=== PATIENT | male | born 1945 | race Hispanic/Latino ===

== ENCOUNTER 2016-09-05 07:23 | Inpatient (IN) | payer MEDICARE ==
[2016-09-05 07:24] VITALS: PULSE 108
[2016-09-05] MEDS ORDERED: Albuterol-Ipratrop 3 mg / 0.5 (3 ml) UD ONE (07:24)
[2016-09-05] MEDS ORDERED: Albuterol-Ipratrop 3 mg / 0.5 (3 ml) UD INH STA ×2 (07:39→07:49)
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
[2016-09-05 07:59] LABS: ABG ALLEN TEST YES; ARTERIAL BLOOD GAS HCO3 23.8 mmol/L (21-28); ARTERIAL BLOOD GAS MODE MASK; ARTERIAL BLOOD GAS PH 7.28 (7.35-7.45); ARTERIAL BLOOD GAS PO2 71 mm/Hg (80-100)
[2016-09-05 08:26] LABS: BASO # 0.1 K/uL (0.0-0.2); BASO % 0.8 % (0.0-2.0); EOS # 0.2 K/uL (0.0-0.7); EOS % 2.5 % (0.0-4.0); HEMATOCRIT 39.7 % (35.0-51.0); LYMPH % 26.5 % (20.0-40.0); MEAN CELL VOLUME 93.5 fl (80.0-94.0); MEAN CORPUSCULAR HEMOGLOBIN 29.9 pg (27.0-31.0); MEAN CORPUSCULAR HGB CONC 31.9 g/dL (33.0-37.0); MEAN PLATELET VOLUME 9.3 fl (7.2-11.7); MONO # 0.8 K/uL (0.0-0.8); NEUT # 4.5 K/uL (1.8-7.0); NEUT % 60.2 % (50.0-75.0); NRBC % 0.2 % (0.0-0.0); WHITE BLOOD COUNT 7.5 K/uL (4.8-10.8)
[2016-09-05 08:38] LABS: BLOOD UREA NITROGEN 24 mg/dl (9-20); CALCIUM 8.5 mg/dL (8.4-10.2); CARBON DIOXIDE 26 mmol/L (22-30); CHLORIDE 104 mmol/L (98-107); GFR AFRICAN-AMERICAN > 60; GLUCOSE,RANDOM 240 mg/dL (75-110); POTASSIUM 4.3 MMOL/L (3.6-5.0); SODIUM 142 mmol/l (132-148)
--- NOTE | 2016-09-05 09:19 | RAD ---
PROCEDURE: CHEST RADIOGRAPH, 1 VIEW HISTORY: c/o chest pain COMPARISON: 12/12/2015 FINDINGS: LUNGS: Multifocal hazy opacities throughout both lungs. PLEURA: No pneumothorax or pleural fluid seen. CARDIOVASCULAR: Enlarged cardiomediastinal silhouette. OSSEOUS STRUCTURES: The osseous structures demonstrate degenerative changes. VISUALIZED UPPER ABDOMEN: Upper abdomen is suboptimally evaluated. OTHER FINDINGS: Left-sided AICD. Dental hardware. IMPRESSION: Multifocal hazy opacities throughout both lungs particularly in the middle and lower lung perales. Underlying edema, hemorrhage or multifocal infection should be considered.
[2016-09-05 09:45] LABS: PARTIAL THROMBOPLASTIN TIME 27.1 Seconds (25.6-37.1)
[2016-09-05 10:18] LABS: RBC URINE 2 /hpf (0-3); URINE BILIRUBIN NEGATIVE (NEGATIVE); URINE BLOOD NEGATIVE (NEGATIVE); URINE COLOR STRAW (YELLOW); URINE GLUCOSE (UA) NEG (Normal); URINE KETONE NEGATIVE (NEGATIVE); URINE LEUKOCYTE ESTERASE NEG Leu/uL (Negative); URINE PROTEIN 100 mg/dL (NEGATIVE); URINE UROBILINOGEN 0.2-1.0 mg/dL (0.2-1.0); WBC URINE 2 /hpf (0-5)
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
[2016-09-05] MEDS ORDERED: Digoxin 500 mcg/2ml (0.5 mg/2ml) Inj IVP STA (10:43)
[2016-09-05] MEDS ORDERED: Digoxin 500 mcg/2ml (0.5 mg/2ml) Inj ONE (11:01)
[2016-09-05] MEDS: Potassium Chloride 20 mEq ER Tab PO SCH (18:04)
[2016-09-05] MEDS: Enoxaparin 40 mg Syringe SC SCH (21:02)
[2016-09-06 08:27] LABS: HEMATOCRIT 34.2 % (35.0-51.0); MEAN CELL VOLUME 91.7 fl (80.0-94.0); MEAN CORPUSCULAR HEMOGLOBIN 29.4 pg (27.0-31.0); MEAN CORPUSCULAR HGB CONC 32.1 g/dL (33.0-37.0); RED CELL DISTRIBUTION WIDTH 14.6 % (11.5-14.5); WHITE BLOOD COUNT 11.1 K/uL (4.8-10.8)
--- NOTE | 2016-09-06 08:27 | CP.PCM.PN ---
Subjective - Date & Time of Evaluation Date of Evaluation: 09/06/16 Time of Evaluation: 07:30 - Subjective Subjective: The pt is feeling much better still with mild SOB His Troponins are positive x 3 Because of this I told the patient that I was going to request a consult with Dr Abby Bradford who saw him when he was at [facility] The patient refuses --says he wants to go home does not want Cath done. Continue present Tx Objective - Vital Signs/Intake and Output Vital Signs (last 24 hours): Temp Pulse Resp BP Pulse Ox 97.6 F 98 H 18 121/72 98 09/06/16 07:59 09/06/16 07:59 09/06/16 07:59 09/06/16 07:59 09/06/16 07:59 - Medications Medications: Current Medications Enalapril Maleate (Vasotec) 5 mg PO DAILY [facility] Last Admin: 09/05/16 18:52 Dose: 5 mg Enoxaparin Sodium (Lovenox) 40 mg SC DAILY [facility] PRN Reason: Protocol Last Admin: 09/05/16 21:02 Dose: 40 mg Furosemide (Lasix) 40 mg IVP DAILY [facility] Potassium Chloride (K-Dur 20 Meq Er Tab) 20 meq PO DAILY [facility] Stop: 09/07/16 09:00 Last Admin: 09/05/16 18:04 Dose: 20 meq - Labs Labs: PT 10.9 Seconds (9.8-13.1) 09/05/16 07:35 INR 1.0 (0.9-1.2) 09/05/16 07:35 APTT 27.1 Seconds (25.6-37.1) 09/05/16 07:35 - Constitutional Appears: No Acute Distress - Head Exam Head Exam: NORMAL INSPECTION - Eye Exam Eye Exam: Normal appearance Pupil Exam: NORMAL ACCOMODATION - ENT Exam ENT Exam: Normal Exam - Neck Exam Neck Exam: Normal Inspection - Respiratory Exam Respiratory Exam: Decreased Breath Sounds - Cardiovascular Exam Cardiovascular Exam: REGULAR RHYTHM - GI/Abdominal Exam GI & Abdominal Exam: Normal Bowel Sounds Assessment and Plan (1) COPD exacerbation Status: Acute (2) Chronic systolic dysfunction of left ventricle Status: Acute (3) Pneumonia Status: Acute (4) Elevated troponin Assessment & Plan: As noted above recommended to pt that I would like Dr. Abby Bradford to evaluate him for possible cath He does not want this Status: Acute
[2016-09-06 08:40] LABS: ALB/GLOB RATIO 1.1 (1.0-2.1); ALKALINE PHOSPHATASE 62 U/L (38-126); ALT/SGPT 37 U/L (21-72); AST/SGOT 32 U/L (17-59); BILIRUBIN,TOTAL 0.4 mg/dl (0.2-1.3); BLOOD UREA NITROGEN 26 mg/dl (9-20); CALCIUM 8.5 mg/dL (8.4-10.2); CARBON DIOXIDE 31 mmol/L (22-30); CHLORIDE 103 mmol/L (98-107); GFR AFRICAN-AMERICAN > 60; GLUCOSE,RANDOM 114 mg/dL (75-110); SODIUM 139 mmol/l (132-148)
[2016-09-06] MEDS: Potassium Chloride 20 mEq ER Tab PO SCH (08:40)
[2016-09-06] MEDS: Enoxaparin 40 mg Syringe SC SCH (08:41)
[2016-09-06 08:44] LABS: POTASSIUM 5.4 MMOL/L (3.6-5.0)
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
--- NOTE | 2016-09-06 11:30 | CP.PCM.PN ---
Subjective - Date & Time of Evaluation Date of Evaluation: 09/06/16 Time of Evaluation: 10:30 - Subjective Subjective: patient is not SOB Denies chest pain Noted to have three positive enzymes. Desires to go home and AMA. Objective - Vital Signs/Intake and Output Vital Signs (last 24 hours): Temp Pulse Resp BP Pulse Ox 97.6 F 98 H 18 121/72 98 09/06/16 07:59 09/06/16 09:00 09/06/16 07:59 09/06/16 08:40 09/06/16 07:59 - Medications Medications: Current Medications Enalapril Maleate (Vasotec) 5 mg PO DAILY [facility] Last Admin: 09/06/16 08:41 Dose: 5 mg Enoxaparin Sodium (Lovenox) 40 mg SC DAILY [facility] PRN Reason: Protocol Last Admin: 09/06/16 08:41 Dose: 40 mg Furosemide (Lasix) 40 mg IVP BID [facility] Potassium Chloride (K-Dur 20 Meq Er Tab) 20 meq PO DAILY [facility] Stop: 09/07/16 09:00 Last Admin: 09/06/16 08:40 Dose: 20 meq - Labs Labs: 09/06/16 06:30 09/06/16 06:30 PT 10.9 Seconds (9.8-13.1) 09/05/16 07:35 INR 1.0 (0.9-1.2) 09/05/16 07:35 APTT 27.1 Seconds (25.6-37.1) 09/05/16 07:35 - Head Exam Head Exam: NORMAL INSPECTION - Eye Exam Eye Exam: Normal appearance - ENT Exam ENT Exam: Mucous Membranes Moist - Respiratory Exam Respiratory Exam: Decreased Breath Sounds - Cardiovascular Exam Cardiovascular Exam: Irregular Rhythm - Neurological Exam Neurological Exam: Awake - Psychiatric Exam Psychiatric exam: Anxious Assessment and Plan (1) Acute coronary syndrome Status: Acute (2) Acute pulmonary edema Status: Acute (3) COPD (chronic obstructive pulmonary disease) Status: Acute (4) CHF exacerbation Status: Acute (5) HTN (hypertension) Status: Acute - Assessment and Plan (Free Text) Plan: Cont meds cont tx cont diuresis check labs in am Discussed with Dr Sanchez mejia possible cath.
--- NOTE | 2016-09-06 14:23 | CP.PCM.CON ---
History of Present Illness - History of Present Illness History of Present Illness: I was asked to see patient by DR Sanabria and Dr Sigala, Patient is a 71 year old male with PMH CABG, ischemic cardiomyopathy s/p AICD, afib with previous supratherapeutic INR known to me from multiple admissions from [facility]. He underwent nuclear stress test revealing severe LV dysfunction with infarction of the inferolateral wall of the left ventricle. Patient has been poorly compliant with medical therapy. He developed dyspnea while driving and presented to [facility]. He deneis chest pain. pro BNP was markedly elevated. There is mild troponin elevation. Review of Systems - Constitutional Constitutional: absent: As Per HPI, Anorexia, Chills, Daytime Sleepiness, Excessive Sweating, Fatigue, Fever, Frequent Falls, Headache, Increased Appetite , Lethargy, Malaise, Night Sweats, Snoring, Sleep Apnea, Weight Gain, Weight Loss, Weakness, Other - EENT Eyes: absent: As Per HPI, Blind Spots, Blurred Vision, Change in Vision, Decreased Night Vision, Diplopia, Discharge, Dry Eye, Exophthalmos, Floaters, Irritation, Itchy Eyes, Loss of Peripheral Vision, Pain, Photophobia, Requires Corrective Lenses, Sees Flashes, Spots in Vision, Tunnel Vision, Other Visual Disturbances, Loss of Vision, Other Ears: absent: As Per HPI, Decreased Hearing, Ear Discharge, Ear Pain, Tinnitus, Abnormal Hearing, Disequilibrium, Dizziness, Other Nose/Mouth/Throat: absent: As Per HPI, Epistaxis, Nasal Congestion, Nasal Discharge, Nasal Obstruction, Nasal Trauma, Nose Pain, Post Nasal Drip, Sinus Pain, Sinus Pressure, Bleeding Gums, Change in Voice, Dental Pain, Dry Mouth, Dysphagia, Halitosis, Hoarsness, Lip Swelling, Mouth Lesions, Mouth Pain, Odynophagia, Sore Throat, Throat Swelling, Tongue Swelling, Facial Pain, Neck Pain, Neck Mass, Other - Cardiovascular Cardiovascular: Dyspnea - Respiratory Respiratory: Dyspnea - Gastrointestinal Gastrointestinal: absent: As Per HPI, Abdominal Pain, Belching, Bloating, Change in Bowel Habits, Change in Stool Character, Coffee Ground Emesis, Constipation, Cramping, Diarrhea, Dyspepsia, Dysphagia, Early Satiety, Excessive Flatus, Fecal Incontinence, Heartburn, Hematemesis, Hematochezia, Loose Stools, Melena, Nausea, Odynophagia, Temesmus, Vomiting, Other - Genitourinary Genitourinary: absent: As Per HPI, Change in Urinary Stream, Difficulty Urinating, Dysuria, Flank Pain, Hematuria, Pyuria, Nocturia, Urinary Incontinence, Urinary Frequency, Urinary Hesitance, Urinary Urgency, Voiding Freq/Small Amts, Freq UTI, Hx Renal/Bladder Calculi, Hx /Renal Surgery, Bladder Distension, Other - Musculoskeletal Musculoskeletal: absent: As Per HPI, Abnormal Gait, Arthralgias, Atrophy, Back Pain, Deformity, Joint Swelling, Limited Range of Motion, Loss of Height, Muscle Cramps, Muscle Weakness, Myalgias, Neck Pain, Numbness, Radiating Pain into Limb, Stiffness, Tingling, Other - Integumentary Integumentary: absent: As Per HPI, Acne, Alopecia, Bleeding Lesions, Change in Hair, Change in Nails, Change in Pigmentation, Changing Lesions, Dry Skin, Erythema, Furuncle, Hirsutism, Lesions, New Lesions, Non-Healing Lesions, Photosensitivity, Pruritus, Rash, Skin Pain, Skin Ulcer, Sores, Striae, Swelling , Unusual Bruising, Wounds, Jaundice, Other - Neurological Neurological: absent: As Per HPI, Abnormal Gait, Abnormal Hearing, Abnormal Movements, Abnormal Speech, Behavioral Changes, Burning Sensations, Confusion, Convulsions, Disequilibrium, Dizziness, Numbness, Focal Weakness, Frequent Falls , Headaches, Lack of Coordination, Loss of Vision, Memory Loss, Paresthesias, Radicular Pain, Restless Legs, Sensory Deficit, Syncope, Tingling, Tremor, Vertigo, Weakness, Other Visual Disturbances, Other - Psychiatric Psychiatric: absent: As Per HPI, Abnormal Sleep Pattern, Anhedonia, Anxiety, Auditory Hallucinations, Behavioral Changes, Change in Appetite, Change in Libido, Confusion, Depression, Difficulty Concentrating, Hallucinations, Homicidal Ideation, Hopelessness, Irritability, Memory Loss, Mood Swings, Panic Attacks, Paranoia, Suicidal Ideation, Visual Hallucinations, Tactile Hallucinations, Other - Endocrine Endocrine: absent: As Per HPI, Change in Body Appearance, Change in Libido, Cold Intolorance, Deepening of Voice, Excessive Sweating, Fatigue, Flushing, Heat Intolorance, Increase in Ring/Shoe/Hat Size, Palpitations, Polydipsia, Polyphagia, Polyuria, Other - Hematologic/Lymphatic Hematologic: absent: As Per HPI, Easy Bleeding, Easy Bruising, Lymphadenopathy, Other Past Patient History - Infectious Disease Hx of Infectious Diseases: None - Past Medical History & Family History Past Medical History?: No - Past Social History Smoking Status: Former Smoker - CARDIAC Hx Atrial Fibrillation: Yes Hx Congestive Heart Failure: Yes Hx Hypertension: Yes Hx Pacemaker: Yes - PULMONARY Hx Chronic Obstructive Pulmonary Disease (COPD): Yes (Emphysema) Hx Emphysema: Yes - NEUROLOGICAL Hx Neurological Disorder: No - HEENT Other/Comment: wears eyeglasses - RENAL Hx Chronic Kidney Disease: No - ENDOCRINE/METABOLIC Hx Endocrine Disorders: No - HEMATOLOGICAL/ONCOLOGICAL Hx Human Immunodeficiency Virus (HIV): No - INTEGUMENTARY Hx Dermatological Problems: No - MUSCULOSKELETAL/RHEUMATOLOGICAL Hx Musculoskeletal Disorders: No Hx Falls: No - GASTROINTESTINAL Hx Gastrointestinal Disorders: No - GENITOURINARY/GYNECOLOGICAL Hx Genitourinary Disorders: No - PSYCHIATRIC Hx Psychophysiologic Disorder: No Hx Substance Use: No - SURGICAL HISTORY Hx Surgeries: Yes Other/Comment: Surgeries: Hernia repair and Pacemaker insertion - ANESTHESIA Hx Anesthesia: Yes Hx Anesthesia Reactions: No Hx Malignant Hyperthermia: No Meds Allergies/Adverse Reactions: Allergies Allergy/AdvReac Type Severity Reaction Status Date / Time No Known Allergies Allergy Verified 08/14/16 16:31 - Medications Medications: Current Medications Enalapril Maleate (Vasotec) 5 mg PO DAILY [facility] Last Admin: 09/06/16 08:41 Dose: 5 mg Enoxaparin Sodium (Lovenox) 40 mg SC DAILY [facility] PRN Reason: Protocol Last Admin: 09/06/16 08:41 Dose: 40 mg Furosemide (Lasix) 40 mg IVP BID [facility] Potassium Chloride (K-Dur 20 Meq Er Tab) 20 meq PO DAILY [facility] Stop: 09/07/16 09:00 Last Admin: 09/06/16 08:40 Dose: 20 meq Physical Exam - Constitutional Appears: Non-toxic - Head Exam Head Exam: NORMAL INSPECTION - Eye Exam Eye Exam: Normal appearance - ENT Exam ENT Exam: Mucous Membranes Moist - Neck Exam Neck exam: Positive for: Full Rom - Respiratory Exam Respiratory Exam: Decreased Breath Sounds - Cardiovascular Exam Cardiovascular Exam: REGULAR RHYTHM - GI/Abdominal Exam GI & Abdominal Exam: Normal Bowel Sounds - Rectal Exam Rectal Exam: Deferred - Extremities Exam Extremities exam: Positive for: pedal edema - Back Exam Back exam: NORMAL INSPECTION - Neurological Exam Neurological exam: Alert, Oriented x3 - Psychiatric Exam Psychiatric exam: Normal Affect - Skin Skin Exam: Normal Color Results - Vital Signs Recent Vital Signs: Last Vital Signs Temp 97.7 F 09/06/16 12:21 Pulse 85 09/06/16 12:21 Resp 18 09/06/16 12:21 BP 99/59 L 09/06/16 12:21 Pulse Ox 98 09/06/16 12:21 - Labs Result Diagrams: 09/06/16 06:30 09/06/16 06:30 Labs: Laboratory Results - last 24 hr 09/05/16 09/05/16 09/06/16 14:49 22:39 06:30 WBC 11.1 H RBC 3.73 L Hgb 11.0 L Hct 34.2 L MCV 91.7 MCH 29.4 MCHC 32.1 L RDW 14.6 H Plt Count 212 Sodium Potassium Chloride Carbon Dioxide Anion Gap BUN Creatinine Est GFR ( Amer) Est GFR (Non-Af Amer) Random Glucose Calcium Total Bilirubin AST ALT Alkaline Phosphatase Troponin I 0.6090 H* 0.5540 H* NT-Pro-B Natriuret Pep Total Protein Albumin Globulin Albumin/Globulin Ratio 09/06/16 06:30 WBC RBC Hgb Hct MCV MCH MCHC RDW Plt Count Sodium 139 Potassium 5.4 H Chloride 103 Carbon Dioxide 31 H Anion Gap 10 BUN 26 H Creatinine 0.8 Est GFR ( Amer) > 60 Est GFR (Non-Af Amer) > 60 Random Glucose 114 H Calcium 8.5 Total Bilirubin 0.4 AST 32 ALT 37 Alkaline Phosphatase 62 Troponin I NT-Pro-B Natriuret Pep 6670 H Total Protein 6.0 L Albumin 3.1 L Globulin 2.8 Albumin/Globulin Ratio 1.1 - EKG Data EKG Interpreted by: Myself Assessment & Plan (1) Systolic dysfunction with acute on chronic heart failure Assessment and Plan: patient wuld likely benefit from increased diuretic therapy. Status: Acute (2) Elevated troponin Assessment and Plan: patient has severe LV dysfunction with a large area of infarction on recent stress test. The troponin elevation in the settin og acute on chronic systolic dysfunction may more likely due to acute CHF. Given previous nuclear imaging would recommend medical therapy. would not plan for cardiac cath at this time. Status: Acute (3) CAD (coronary artery disease) Assessment and Plan: antipaltelet therapy Status: Acute (4) Chronic atrial fibrillation Assessment and Plan: previously poorly compliant with Coumadin Status: Acute (5) HTN (hypertension) Assessment and Plan: mgmt per primary team Status: Acute
--- NOTE | 2016-09-06 14:28 | CARD ---
APPROVED REPORT EXAM: Two-dimensional and M-mode echocardiogram with Doppler and color Doppler. Other Information Quality : GoodRhythm : INDICATION Congestive Heart Failure 2D DIMENSIONS IVSd1.52 (0.7-1.1cm)LVDd6.03 (3.9-5.9cm) PWd1.30 (0.7-1.1cm)IVSs1.65 (0.8-1.2cm) LVDs5.29 (2.5-4.0cm)FS (%) 12.2 % PWs1.81 (0.8-1.2cm) M-Mode DIMENSIONS Left Atrium (MM)4.93 (2.5-4.0cm)Aortic Root3.69 (2.2-3.7cm) Aortic Cusp Exc.2.22 (1.5-2.0cm) Aortic Valve AoV Peak Unuhomej237.2cm/sAoV VTI30.8cmAO Peak GR.19mmHg LVOT Peak Doqdxfvb289.2cm/Sukhdeep Mean GR.9mmHg Mitral Valve MV E Idzebsas71.3cm/sMV DECEL [id number] A Ccchojnp12.9cm/s MV SOM09pqA/A ratio2.2MVA (PHT)4.63cm2 TDI Lateral E' Peak V6.36cm/sMedial E' Peak V7.17cm/sE/Lateral E'12.2 E/Medial E'10.8 Pulmonary Valve PV Peak Aanvwdaf514.4cm/s Tricuspid Valve TR Peak Ncqxhgaw325ng/sRAP OYDRQKYL36qxNxXN Peak Gr.34mmHg TPZK31pzCz LEFT VENTRICLE The Left Ventricle is moderately dilated. There is normal left ventricular wall thickness. Left ventricle systolic function is severely impaired. The Ejection Fraction is 10-15%. Generalised hypokinesia. Could not be assesed due to rhythm. RIGHT VENTRICLE The right ventricle is normal size. There is normal right ventricular wall thickness. The right ventricular systolic function is normal. ATRIA The left atrium is moderately dilated. The right atrium size is normal. Pacing leads were seen in RA. AORTIC VALVE The aortic valve is normal in structure and function. No aortic regurgitation is present. There is no aortic valvular stenosis. MITRAL VALVE The mitral valve is normal in structure. There is no evidence of mitral valve prolapse. There is no mitral valve stenosis. Mitral regurgitation is mild. TRICUSPID VALVE The tricuspid valve is normal in structure. There is mild tricuspid regurgitation. Right ventricular systolic pressure is estimated at 51 mmHg. There is moderate pulmonary hypertension. PULMONIC VALVE The pulmonary valve is normal in structure and function. There is mild pulmonic valvular regurgitation. GREAT VESSELS The aortic root is normal in size. The IVC is normal in size and collapses >50% with inspiration. PERICARDIAL EFFUSION The pericardium appears normal. <Conclusion> The Left Ventricle is moderately dilated. There is normal left ventricular wall thickness. Generalised hypokinesia. Left ventricle systolic function is severely impaired. The Ejection Fraction is 10-15%. The left atrium is moderately dilated. There is mild tricuspid regurgitation. There is moderate pulmonary hypertension.
--- NOTE | 2016-09-06 14:46 | CARD ---
APPROVED REPORT EKG Measurement Heart [id number] <Conclusion> Sinus tachycardia with premature ventricular complexes or fusion complexes Left bundle branch block Abnormal ECG
--- NOTE | 2016-09-06 14:47 | CARD ---
APPROVED REPORT EKG Measurement Heart [id number] <Conclusion> Undetermined rhythm Left bundle branch block Abnormal ECG
--- NOTE | 2016-09-06 14:47 | CARD ---
APPROVED REPORT EKG Measurement Heart [id number] <Conclusion> Wide QRS tachycardia with frequent atrial-paced complexes Left bundle branch block Abnormal ECG
[2016-09-06 15:05] VITALS: BMI 23.7
[2016-09-06] MEDS ORDERED: Potassium Chloride 20 mEq ER Tab PO SCH (17:00)
--- NOTE | 2016-09-07 05:56 | CARD ---
APPROVED REPORT EKG Measurement Heart [id number] <Conclusion> Atrial-sensed ventricular-paced rhythm in a pattern of bigeminy Abnormal ECG
[2016-09-07 06:50] LABS: HEMATOCRIT 35.3 % (35.0-51.0); MEAN CELL VOLUME 91.3 fl (80.0-94.0); MEAN CORPUSCULAR HEMOGLOBIN 29.6 pg (27.0-31.0); MEAN CORPUSCULAR HGB CONC 32.4 g/dL (33.0-37.0); RED CELL DISTRIBUTION WIDTH 14.6 % (11.5-14.5); WHITE BLOOD COUNT 10.8 K/uL (4.8-10.8)
[2016-09-07 07:05] LABS: ALB/GLOB RATIO 1.1 (1.0-2.1); ALKALINE PHOSPHATASE 65 U/L (38-126); ALT/SGPT 39 U/L (21-72); AST/SGOT 31 U/L (17-59); BILIRUBIN,TOTAL 0.5 mg/dl (0.2-1.3); BLOOD UREA NITROGEN 39 mg/dl (9-20); CALCIUM 8.8 mg/dL (8.4-10.2); CARBON DIOXIDE 36 mmol/L (22-30); CHLORIDE 98 mmol/L (98-107); GFR AFRICAN-AMERICAN > 60; GLUCOSE,RANDOM 75 mg/dL (75-110); POTASSIUM 4.3 MMOL/L (3.6-5.0); SODIUM 138 mmol/l (132-148); TOTAL PROTEIN 6.2 G/DL (6.3-8.2)
[2016-09-07] MEDS: Enoxaparin 40 mg Syringe SC SCH (09:33)
[2016-09-07] MEDS: Potassium Chloride 20 mEq ER Tab PO SCH (09:35)
--- NOTE | 2016-09-07 10:38 | IP.NPCORE ---
Heart Failure Core Measure - Heart Failure Ejection Fraction: Less Than 40 % (echo 10-15%) KRISTIAN Inhibitor Prescribed: Yes Beta-Sarahi Prescribed: Carvedilol AnticoagulationTherapy for Atrial Fibrillation/Atrialflutter: No Contraindication/Reason for not providing: n/a non compliance - rate control AF Aldosterone Antagonist Prescribed: No Contraindication/Reason for not providing: na - Follow up Will be discharged to: Home
--- NOTE | 2016-09-07 12:30 | CP.PCM.PN ---
Subjective - Date & Time of Evaluation Date of Evaluation: 09/07/16 Time of Evaluation: 12:28 - Subjective Subjective: patient is very upset that he has to wait for a Tare Worker. I had a discussion with Dr Bradford yesterday and made aware that patient is very noncompliant He denies any chest pain or SOB today Desires to go home. Has no fever. Objective - Vital Signs/Intake and Output Vital Signs (last 24 hours): Temp Pulse Resp BP Pulse Ox 97.5 F L 51 L 18 143/61 99 09/07/16 12:22 09/07/16 12:22 09/07/16 12:22 09/07/16 12:22 09/07/16 12:22 Intake and Output: 09/07/16 09/07/16 06:59 18:59 Intake Total 28 Balance 28 - Medications Medications: Current Medications Carvedilol (Coreg) 3.125 mg PO Q12 [facility] Last Admin: 09/07/16 11:18 Dose: 3.125 mg Enalapril Maleate (Vasotec) 5 mg PO DAILY [facility] Last Admin: 09/07/16 09:33 Dose: 5 mg Enoxaparin Sodium (Lovenox) 40 mg SC DAILY [facility] PRN Reason: Protocol Last Admin: 09/07/16 09:33 Dose: 40 mg Furosemide (Lasix) 40 mg IVP BID [facility] Last Admin: 09/07/16 09:33 Dose: 40 mg - Labs Labs: 09/07/16 05:30 09/07/16 05:30 PT 10.9 Seconds (9.8-13.1) 09/05/16 07:35 INR 1.0 (0.9-1.2) 09/05/16 07:35 APTT 27.1 Seconds (25.6-37.1) 09/05/16 07:35 - Head Exam Head Exam: NORMAL INSPECTION - Eye Exam Eye Exam: Normal appearance - ENT Exam ENT Exam: Mucous Membranes Moist - Respiratory Exam Respiratory Exam: Decreased Breath Sounds - Cardiovascular Exam Cardiovascular Exam: REGULAR RHYTHM - GI/Abdominal Exam GI & Abdominal Exam: Normal Bowel Sounds - Neurological Exam Neurological Exam: Awake, CN II-XII Intact, Oriented x3 - Psychiatric Exam Psychiatric exam: Normal Mood Assessment and Plan (1) Acute coronary syndrome Status: Acute (2) Acute pulmonary edema Status: Acute (3) Elevated troponin Status: Acute (4) CAD (coronary artery disease) Status: Acute (5) CHF exacerbation Status: Acute (6) COPD exacerbation Status: Acute (7) Chronic atrial fibrillation Status: Acute - Assessment and Plan (Free Text) Plan: cont meds Cont Lasix fluid restriction patient had a stress test done by Dr Coronado recently.
[2016-09-08 06:45] LABS: HEMATOCRIT 37.2 % (35.0-51.0); MEAN CELL VOLUME 90.7 fl (80.0-94.0); MEAN CORPUSCULAR HEMOGLOBIN 29.4 pg (27.0-31.0); MEAN CORPUSCULAR HGB CONC 32.4 g/dL (33.0-37.0); WHITE BLOOD COUNT 7.9 K/uL (4.8-10.8)
[2016-09-08 06:59] LABS: BLOOD UREA NITROGEN 34 mg/dl (9-20); CALCIUM 8.7 mg/dL (8.4-10.2); CARBON DIOXIDE 36 mmol/L (22-30); CHLORIDE 99 mmol/L (98-107); GFR AFRICAN-AMERICAN > 60; GLUCOSE,RANDOM 95 mg/dL (75-110); MAGNESIUM 2.2 MG/DL (1.6-2.3); PHOSPHOROUS 4.1 mg/dl (2.5-4.5); POTASSIUM 4.1 MMOL/L (3.6-5.0); SODIUM 141 mmol/l (132-148)
[2016-09-08] MEDS: Enoxaparin 40 mg Syringe SC SCH (08:37)
--- NOTE | 2016-09-08 09:33 | CARD ---
APPROVED REPORT EKG Measurement Heart [id number] <Conclusion> Wide QRS tachycardia with occasional premature ventricular complexes Left bundle branch block Abnormal ECG
--- NOTE | 2016-09-08 15:40 | CP.PCM.PN ---
<Brad Echeverria - Last Filed: 09/08/16 15:37> Subjective - Date & Time of Evaluation Date of Evaluation: 09/08/16 Time of Evaluation: 11:37 - Subjective Subjective: Patient seen and examined at bedside with attending. No acute events overnight. Comfortable. No pain, sob, chest pain, abdominal pain. Objective - Vital Signs/Intake and Output Vital Signs (last 24 hours): Temp Pulse Resp BP Pulse Ox 97.5 F L 74 18 109/63 99 09/08/16 12:04 09/08/16 12:04 09/08/16 12:04 09/08/16 12:04 09/08/16 12:04 Intake and Output: 09/08/16 09/08/16 06:59 18:59 Intake Total 360 Balance 360 - Medications Medications: Current Medications Aspirin (Ecotrin) 81 mg PO DAILY [facility] Last Admin: 09/08/16 10:55 Dose: 81 mg Carvedilol (Coreg) 3.125 mg PO Q12 [facility] Last Admin: 09/08/16 08:36 Dose: 3.125 mg Enalapril Maleate (Vasotec) 5 mg PO DAILY [facility] Last Admin: 09/08/16 08:37 Dose: 5 mg Enoxaparin Sodium (Lovenox) 40 mg SC DAILY [facility] PRN Reason: Protocol Last Admin: 09/08/16 08:37 Dose: 40 mg Furosemide (Lasix) 40 mg IVP BID [facility] Last Admin: 09/08/16 08:36 Dose: 40 mg - Labs Labs: 09/08/16 05:20 09/08/16 05:20 PT 10.9 Seconds (9.8-13.1) 09/05/16 07:35 INR 1.0 (0.9-1.2) 09/05/16 07:35 APTT 27.1 Seconds (25.6-37.1) 09/05/16 07:35 - Constitutional Appears: Non-toxic, No Acute Distress - Head Exam Head Exam: NORMAL INSPECTION - Eye Exam Eye Exam: Normal appearance - Respiratory Exam Respiratory Exam: Decreased Breath Sounds, NORMAL BREATHING PATTERN - Cardiovascular Exam Cardiovascular Exam: REGULAR RHYTHM, +S1, +S2. absent: Murmur - GI/Abdominal Exam GI & Abdominal Exam: Soft, Normal Bowel Sounds. absent: Tenderness - Neurological Exam Neurological Exam: Alert, Awake - Psychiatric Exam Psychiatric exam: Normal Affect, Normal Mood - Skin Skin Exam: Dry, Intact, Normal Color, Warm Assessment and Plan (1) CHF exacerbation Assessment & Plan: Improving elevated pro-bnp Cardiology consulted, appreciate recommendations continue diuresis and fluid restriction continue to monitor in telemetry Status: Acute (2) HTN (hypertension) Assessment & Plan: Controlled. continue current management. Status: Acute (3) Elevated troponin Assessment & Plan: Cardiology consulted, appreciate recommendations no plans for cath at this time. Status: Acute <Kevin Sigala - Last Filed: 09/09/16 07:33> Objective - Vital Signs/Intake and Output Vital Signs (last 24 hours): Temp Pulse Resp BP Pulse Ox 98.9 F 76 18 116/79 99 09/09/16 05:19 09/09/16 05:19 09/09/16 05:19 09/09/16 05:19 09/09/16 05:19 - Medications Medications: Current Medications Aspirin (Ecotrin) 81 mg PO DAILY [facility] Last Admin: 09/08/16 10:55 Dose: 81 mg Carvedilol (Coreg) 3.125 mg PO Q12 [facility] Last Admin: 09/08/16 21:48 Dose: 3.125 mg Enalapril Maleate (Vasotec) 5 mg PO DAILY [facility] Last Admin: 09/08/16 08:37 Dose: 5 mg Enoxaparin Sodium (Lovenox) 40 mg SC DAILY [facility] PRN Reason: Protocol Last Admin: 09/08/16 08:37 Dose: 40 mg Furosemide (Lasix) 40 mg IVP BID [facility] Last Admin: 09/08/16 17:18 Dose: 40 mg - Labs Labs: 09/08/16 05:20 09/08/16 05:20 PT 10.9 Seconds (9.8-13.1) 09/05/16 07:35 INR 1.0 (0.9-1.2) 09/05/16 07:35 APTT 27.1 Seconds (25.6-37.1) 09/05/16 07:35 Assessment and Plan (1) Acute coronary syndrome Status: Acute (2) Acute pulmonary edema Status: Acute (3) COPD (chronic obstructive pulmonary disease) Status: Acute (4) CHF exacerbation Status: Acute (5) HTN (hypertension) Status: Acute - Assessment and Plan (Free Text) Plan: I was present during evaluation and discussed with Dr Echeverria re plans of care and mgt. kevin Sigala M.D.
[2016-09-09 08:15] VITALS: RESP 20; TEMP 97.7
[2016-09-09] MEDS: Enoxaparin 40 mg Syringe SC SCH (08:42)
[2016-09-09 09:58] LABS: CHLORIDE 95 mmol/L (98-107); POTASSIUM 4.6 MMOL/L (3.6-5.0); SODIUM 136 mmol/l (132-148)
[2016-09-09 10:01] LABS: CARBON DIOXIDE 37 mmol/L (22-30); GFR AFRICAN-AMERICAN > 60
[2016-09-09 10:02] LABS: BLOOD UREA NITROGEN 31 mg/dl (9-20); CALCIUM 8.9 mg/dL (8.4-10.2); GLUCOSE,RANDOM 179 mg/dL (75-110)
[2016-09-09 12:42] VITALS: BP 105/68; PULSE 81; O2SAT 98
--- NOTE | 2016-09-09 15:50 | CP.PCM.DIS ---
Provider - Provider Date of Admission: 09/05/16 09:12 Attending physician: Kevin Sigala MD Time Spent in preparation of Discharge (in minutes): 30 Diagnosis - Discharge Diagnosis (1) CHF exacerbation Status: Acute Priority: High (2) HTN (hypertension) Status: Acute (3) Elevated troponin Status: Acute Hospital Course - Lab Results Lab Results: Most Recent Lab Values WBC 7.9 K/uL (4.8-10.8) 09/08/16 05:20 RBC 4.10 Mil/uL (4.40-5.90) L 09/08/16 05:20 Hgb 12.1 g/dL (12.0-18.0) 09/08/16 05:20 Hct 37.2 % (35.0-51.0) 09/08/16 05:20 MCV 90.7 fl (80.0-94.0) 09/08/16 05:20 MCH 29.4 pg (27.0-31.0) 09/08/16 05:20 MCHC 32.4 g/dL (33.0-37.0) L 09/08/16 05:20 RDW 15.0 % (11.5-14.5) H 09/08/16 05:20 Plt Count 207 K/uL (130-400) 09/08/16 05:20 MPV 9.3 fl (7.2-11.7) 09/05/16 07:35 Neut % (Auto) 60.2 % (50.0-75.0) 09/05/16 07:35 Lymph % (Auto) 26.5 % (20.0-40.0) 09/05/16 07:35 Grady % (Auto) 10.0 % (0.0-10.0) 09/05/16 07:35 Eos % (Auto) 2.5 % (0.0-4.0) 09/05/16 07:35 Baso % (Auto) 0.8 % (0.0-2.0) 09/05/16 07:35 Neut # 4.5 K/uL (1.8-7.0) 09/05/16 07:35 Lymph # 2.0 K/uL (1.0-4.3) 09/05/16 07:35 Grady # 0.8 K/uL (0.0-0.8) 09/05/16 07:35 Eos # 0.2 K/uL (0.0-0.7) 09/05/16 07:35 Baso # 0.1 K/uL (0.0-0.2) 09/05/16 07:35 PT 10.9 Seconds (9.8-13.1) 09/05/16 07:35 INR 1.0 (0.9-1.2) 09/05/16 07:35 APTT 27.1 Seconds (25.6-37.1) 09/05/16 07:35 pCO2 56 mm/Hg (35-45) H 09/05/16 07:39 pO2 71 mm/Hg (80-100) L 09/05/16 07:39 HCO3 23.8 mmol/L (21-28) 09/05/16 07:39 ABG pH 7.28 (7.35-7.45) L 09/05/16 07:39 ABG Total CO2 28.0 mmol/L (22-28) 09/05/16 07:39 ABG O2 Saturation 96.3 % (95-98) 09/05/16 07:39 ABG Base Excess -1.3 mmol/L (-2.0-3.0) 09/05/16 07:39 Greg Test Yes 09/05/16 07:39 ABG Potassium 4.3 mmol/L (3.6-5.2) 09/05/16 07:39 A-a O2 Difference 572.0 mm/Hg 09/05/16 07:39 Sodium 138.0 mmol/L (132-148) 09/05/16 07:39 Chloride 106.0 mmol/L (98-107) 09/05/16 07:39 Glucose 222 mg/dL (75-110) H 09/05/16 07:39 Lactate 1.2 mmol/L (0.7-2.1) 09/05/16 07:39 Vent Mode Mask 09/05/16 07:39 FiO2 100.0 % 09/05/16 07:39 Sodium 136 mmol/l (132-148) 09/09/16 09:34 Potassium 4.6 MMOL/L (3.6-5.0) 09/09/16 09:34 Chloride 95 mmol/L (98-107) L 09/09/16 09:34 Carbon Dioxide 37 mmol/L (22-30) H 09/09/16 09:34 Anion Gap 9 (10-20) L 09/09/16 09:34 BUN 31 mg/dl (9-20) H 09/09/16 09:34 Creatinine 0.8 mg/dL (0.8-1.5) 09/09/16 09:34 Est GFR ( Amer) > 60 09/09/16 09:34 Est GFR (Non-Af Amer) > 60 09/09/16 09:34 POC Glucose (mg/dL) 269 mg/dL (65-110) H 09/05/16 07:31 Random Glucose 179 mg/dL (75-110) H 09/09/16 09:34 Calcium 8.9 mg/dL (8.4-10.2) 09/09/16 09:34 Phosphorus 4.1 mg/dl (2.5-4.5) 09/08/16 05:20 Magnesium 2.2 MG/DL (1.6-2.3) 09/08/16 05:20 Total Bilirubin 0.5 mg/dl (0.2-1.3) 09/07/16 05:30 AST 31 U/L (17-59) 09/07/16 05:30 ALT 39 U/L (21-72) 09/07/16 05:30 Alkaline Phosphatase 65 U/L (38-126) 09/07/16 05:30 Total Creatine Kinase 120 U/L (55-170) 09/05/16 07:35 CK-MB (Mass) 4.33 ng/mL (0.0-3.38) H 09/05/16 07:35 Troponin I 0.5540 ng/mL (0.00-0.120) H* 09/05/16 22:39 NT-Pro-B Natriuret Pep 3060 pg/ml (0-900) H 09/09/16 09:34 Total Protein 6.2 G/DL (6.3-8.2) L 09/07/16 05:30 Albumin 3.3 g/dL (3.5-5.0) L 09/07/16 05:30 Globulin 2.9 gm/dL (2.2-3.9) 09/07/16 05:30 Albumin/Globulin Ratio 1.1 (1.0-2.1) 09/07/16 05:30 Arterial Blood Potassium 4.3 mmol/L (3.6-5.2) 09/05/16 07:39 Urine Color Straw (YELLOW) 09/05/16 09:45 Urine Clarity Clear (Clear) 09/05/16 09:45 Urine pH 6.0 (5.0-8.0) 09/05/16 09:45 Ur Specific [place] 1.009 (1.003-1.030) 09/05/16 09:45 Urine Protein 100 mg/dL (NEGATIVE) 09/05/16 09:45 Urine Glucose (UA) Neg mg/dL (Normal) 09/05/16 09:45 Urine Ketones Negative mg/dL (NEGATIVE) 09/05/16 09:45 Urine Blood Negative (NEGATIVE) 09/05/16 09:45 Urine Nitrate Negative (NEGATIVE) 09/05/16 09:45 Urine Bilirubin Negative (NEGATIVE) 09/05/16 09:45 Urine Urobilinogen 0.2-1.0 mg/dL (0.2-1.0) 09/05/16 09:45 Ur Leukocyte Esterase Neg Yehuda/uL (Negative) 09/05/16 09:45 Urine RBC (Auto) 2 /hpf (0-3) 09/05/16 09:45 Urine Microscopic WBC 2 /hpf (0-5) 09/05/16 09:45 Ur Squamous Epith Cells < 1 /hpf (0-5) 09/05/16 09:45 Hyaline Casts 6-10 /hpf (0-2) H 09/05/16 09:45 Digoxin < 0.4 ng/mL (0.8-2.0) L 09/05/16 07:35 Blood Type A POSITIVE 09/05/16 07:35 Antibody Screen Negative 09/05/16 07:35 BBK History Checked Patient has bt 09/05/16 07:35 - Hospital Course Hospital Course: 71 y/o male with hx of CAD, CHF COPD atrial fibrillation LBBB was admitted for sudden progressive SOB while [place] Noted to have elevated proBNP and first set of enzymes were positive. Patient is known to be very noncompliant with his medications and has been to [facility] numerous times in the past. Ultrasonic Hand Solderer consulted. Patient was admitted to telemetry unit and was diuresis appropriately. Ultrasonic Hand Solderer noted "severe LV dysfunction with a large area of infarction on recent stress test. The troponin elevation in the settin og acute on chronic systolic dysfunction may more likely due to acute CHF. Given previous nuclear imaging would recommend medical therapy. would not plan for cardiac cath at this time." [facility] Of note, patient threatened to sign out AMA multiple times throughout admission. Discharge Exam - Head Exam Head Exam: NORMAL INSPECTION - Eye Exam Eye Exam: Normal appearance - Respiratory Exam Respiratory Exam: Clear to PA & Lateral, NORMAL BREATHING PATTERN, UNREMARKABLE - Cardiovascular Exam Cardiovascular Exam: REGULAR RHYTHM - GI/Abdominal Exam GI & Abdominal Exam: Normal Bowel Sounds, Unremarkable - Extremities Exam Extremities exam: normal inspection - Neurological Exam Neurological exam: Alert - Psychiatric Exam Psychiatric exam: Normal Affect, Normal Mood - Skin Skin Exam: Dry, Intact, Normal Color, Warm Discharge Plan - Discharge Medications Prescriptions: Aspirin [Ecotrin] 81 mg PO DAILY #30 Atorvastatin [Lipitor] 10 mg PO DAILY #30 Carvedilol [Coreg] 12.5 mg PO BID #30 tab Digoxin [Lanoxin] 0.125 mg PO DAILY #30 tab Enalapril Maleate [Vasotec] 5 mg PO DAILY #30 tab Furosemide [Lasix] 40 mg PO DAILY #30 tab Spironolactone [Aldactone] 25 mg PO DAILY #30 tablet - Follow Up Plan Condition: STABLE Disposition: HOME/ ROUTINE Instructions: Pulmonary Edema (DC), Acute Coronary Syndrome (DC) Additional Instructions: patient cleared for discharge to Home today by , dr. Bradford and Rx for meds to beds provided and faxed to pharmacy patient to f/u with within 1 week f/u with PMD in 1 week Referrals: Jin Zaman MD [Staff Provider] - Krish Eli Jr., MD [Medical Doctor] - Francoise Bradford MD [Staff Provider] -
--- NOTE | 2016-09-11 07:12 | PQF GENQUE ---
This form is a permanent part of the medical record Dr. Sigala, Fur Liner has documented the following information with no mention of this diagnosis in your documentation. Please indicate in your next progress note and /or discharge summary your agreement with consultant [employer] and [employer]. vice president [employer] (ex ) or provide clarification that this diagnosis is not a current condition. Diagnosis: Pneumonia Documented by: Dr Zaman Location: Consult note 09/05, 09/06. No treatment noted Admitted with sudden progressive SOB while driving with chest pain . CXR: Multifocal hazy opacities throughout both lungs particularly in the middle and lower lung perales. Underlying edema, hemorrhage or multifocal infection should be considered. PROBNP 6670 and troponin elevation ( chronically elevated ) which seems to be due to CHF exacerbation. WBC 7.5 and afebrile. Clarification of your documentation is requested to better reflect the severity of illness and intensity of treatment of your patient. PHYSICIAN'S RESPONSE Based on your medical judgment of the clinical indicators outlined above please clarify the following: [] Practitioner response [] If unable to determine, please check the box, sign and date. Present On Admission (POA) Indicator: [] Present at the time of admission [] Not present at the time of admission [] Clinically Undetermined In responding to this query, please exercise your independent professional judgment. The fact that a question is asked does not imply that any particular answer is desired or expected. Thank you for your clarification on this documentation. If you have any questions please call:extension [phone] Medical Records Dept. * Thank you, Brenda Covarrubias RN CD[facility]
== END 2016-09-09 16:00 | disposition home or self-care (01) | DRG 292 ==
LOC: H.ER 07:23 → H.ERHOLD 09:12 → H.TEL 11:41
PROVIDERS: ADMIT Family Medicine; ATTEND Family Medicine
DX: I11.0 Hypertensive heart disease with heart failure (principal); J44.1 Chronic obstructive pulmonary disease with (acute) exacerbation; I24.9 Acute ischemic heart disease, unspecified; I50.23 Acute on chronic systolic (congestive) heart failure; I48.2 Chronic atrial fibrillation; I25.5 Ischemic cardiomyopathy; Z95.1 Presence of aortocoronary bypass graft; I25.10 Atherosclerotic heart disease of native coronary artery without angina pectoris; I44.7 Left bundle-branch block, unspecified; E78.00 Pure hypercholesterolemia, unspecified; Z91.14 Patient's other noncompliance with medication regimen; Z95.810 Presence of automatic (implantable) cardiac defibrillator; Z87.891 Personal history of nicotine dependence; Z79.01 Long term (current) use of anticoagulants

== ENCOUNTER 2018-03-06 20:40 | Inpatient (IN) | payer MEDICARE ==
[2018-03-06 20:40] VITALS: BMI 23.7
[2018-03-06] MEDS ORDERED: Nitroglycerin 2% Ointment Foilpak UD TOP STA (21:02)
[2018-03-06] MEDS ORDERED: Nitroglycerin 2% Ointment Foilpak UD TOP ONE (21:07)
[2018-03-06 21:24] LABS: BASO # 0.1 K/uL (0.0-0.2); BASO % 1.1 % (0.0-2.0); EOS # 0.1 K/uL (0.0-0.7); HEMOGLOBIN 10.4 g/dL (12.0-18.0); LYMPH % 12.6 % (20.0-40.0); MEAN CELL VOLUME 92.9 fl (80.0-94.0); MEAN CORPUSCULAR HEMOGLOBIN 29.4 pg (27.0-31.0); MEAN CORPUSCULAR HGB CONC 31.7 g/dL (33.0-37.0); MEAN PLATELET VOLUME 8.9 fl (7.2-11.7); NEUT # 5.8 K/uL (1.8-7.0); NEUT % 72.3 % (50.0-75.0); NRBC % 0.1 % (0.0-0.0); RBC 3.55 Mil/uL (4.40-5.90); RED CELL DISTRIBUTION WIDTH 15.6 % (11.5-14.5)
[2018-03-06 21:29] LABS: INR 1.1; PROTHROMBIN TIME 12.8 Seconds (9.8-13.1)
[2018-03-06 21:31] LABS: PARTIAL THROMBOPLASTIN TIME 29.5 Seconds (25.6-37.1)
[2018-03-06 21:35] LABS: BLOOD UREA NITROGEN 42 mg/dl (9-20); CALCIUM 8.3 mg/dL (8.4-10.2); GFR NON-AFRICAN AMERICAN > 60
[2018-03-06 21:36] LABS: ALB/GLOB RATIO 0.9 (1.0-2.1); ALT/SGPT 35 U/L (21-72); AST/SGOT 32 U/L (17-59)
[2018-03-06 21:50] LABS: B-TYPE NATRIURETIC PEPTIDE 21900 pg/ml (0-900)
[2018-03-06] MEDS ORDERED: Enoxaparin 80 mg Syringe SC STA (21:58)
--- NOTE | 2018-03-06 22:03 | ED PDOC ---
HPI: SOB/CHF/COPD Time Seen by Provider: 03/06/18 20:47 Chief Complaint (Nursing): Respiratory Distress Chief Complaint (Provider): Respiratory Distress History Per: Patient, Protective Signal Operations Supervisor ([id number]) History/Exam Limitations: clinical condition (Shortness of breath) Onset/Duration Of Symptoms: Days (x2) Additional Complaint(s): 73 years old Yemeni male with history of CHF, hypertension, CAD and car diomyopathy presents to ER for evaluation of shortness of breath onset 2 days ago. Patient had multiple admissions at [facility] for CHF. He reports dyspnea on exacerbation and states he is complaint on medications. PMD: Sreedhar Past Medical History Reviewed: Historical Data, Nursing Documentation, Vital Signs Vital Signs: Last Vital Signs Temp 98 F 03/06/18 20:43 Pulse 98 H 03/06/18 21:20 Resp 20 03/06/18 20:43 BP 139/85 03/06/18 21:12 Pulse Ox 98 03/06/18 20:43 - Medical History PMH: Atrial Fibrillation, CAD, CHF, COPD, Emphysema, HTN Denies: HIV, Chronic Kidney Disease Other PMH: Cardiomyopathy - Surgical History Surgical History: Hernia Repair, Pacemaker - Family History Family History: States: Unknown Family Hx - Social History Current smoker - smoking cessation education provided: No Alcohol: None Drugs: Denies - Immunization History Hx Tetanus Toxoid Vaccination: No Hx Influenza Vaccination: No Hx Pneumococcal Vaccination: No - Home Medications Home Medications: Ambulatory Orders Medication Instructions Recorded Aspirin [Ecotrin] 81 mg PO DAILY #30 09/09/16 Atorvastatin [Lipitor] 10 mg PO DAILY #30 09/09/16 Spironolactone [Aldactone] 25 mg PO DAILY #30 tablet 09/09/16 Lisinopril [Zestril] 5 mg PO DAILY 07/19/17 Carvedilol [Coreg] 3.125 mg PO BID 30 Days #60 tab 01/05/18 Furosemide [Lasix] 40 mg PO ONCE 30 Days #30 tab 01/05/18 Tamsulosin [Flomax] 0.4 mg PO DAILY 30 Days #30 cap 01/05/18 Vancomycin [Vancocin (ORAL OR 250 mg PO QID 9 Days soln 01/05/18 RECTAL USE)] Zolpidem [Ambien] 5 mg PO HS PRN #30 tab 01/05/18 - Allergies Allergies/Adverse Reactions: Allergies Allergy/AdvReac Type Severity Reaction Status Date / Time Iodinated Contrast- Oral and AdvReac ANAPHYLAXIS Verified 12/29/17 18:00 IV Dye Review of Systems Review Of Systems: ROS cannot be obtained secondary to pt's inabilty to answer questions. Respiratory: Positive for: Shortness of Breath Physical Exam - Reviewed Nursing Documentation Reviewed: Yes Vital Signs Reviewed: Yes - Physical Exam Appears: Positive for: Non-toxic, In Acute Distress (moderate) Head Exam: Positive for: ATRAUMATIC, NORMOCEPHALIC Skin: Positive for: Normal Color, Warm, Dry Cardiovascular/Chest: Positive for: JVD (2+) Extremity: Positive for: Swelling (2+ to lower extremity) Neurologic/Psych: Positive for: Alert, Oriented (x3) - Laboratory Results Result Diagrams: 03/06/18 21:20 03/06/18 21:20 - ECG O2 Sat by Pulse Oximetry: 98 (RA) Pulse Ox Interpretation: Normal Medical Decision Making Medical Decision Making: Time: 2050 Initial Impression: 73 years old Yemeni male presents with acute exacerbation of CHF Initial Plan: --EKG --BTN --CMP --Troponin --CBC --PTT --PT --Chest x-ray --Aspirin 324 mg PO --Lasix 40 mg IV --Lovenox 80 mg SC --Nitroglycerin 2% 1 ea Top ---Bipap procedure 2204 Labs reviewed and positive for Troponin and elevated BMP. Chest x-ray shows cardiomegaly, and bilateral pulmonary vascular congestion. Spoke to Dr. Gillette, the hospitalist, for patient admission. Scribe Attestation: Documented by Theresa Roman, acting as a scribe for Juvencio Foster MD. Provider Scribe Attestation: All medical record entries made by the Scribe were at my direction and personally dictated by me. I have reviewed the chart and agree that the record accurately reflects my personal performance of the history, physical exam, medical decision making, and the department course for this patient. I have also personally directed, reviewed, and agree with the discharge instructions and disposition. Disposition - Clinical Impression Clinical Impression: Acute coronary syndrome, CHF exacerbation, Respiratory failure - Patient ED Disposition Is Patient to be Admitted: Yes - Disposition Disposition Time: 22:05 Condition: GUARDED Forms: [employer] (Welsh)
--- NOTE | 2018-03-06 23:11 | CP.PCM.HP ---
<Nolan Martines - Last Filed: 03/07/18 00:01> History of Present Illness - History of Present Illness History of Present Illness: 73 yo male only Azeri speaking w/ PMHx of WI, Afib, PVD, CHF, CAD presents to ED c/o worsening shortness of breath and b/l leg swelling since last week. History taken meanly by nurse and ED doctor because patient is poor historian and very shortness of breath and using BiPAP. No family at bedside at this time, was here earlier. Patient reports multiples admission in [facility] due to CHF exacerbation. Patient denies chest pain, palpitations, abdominal pain. Patient no cooperative with interview and exam. PMD: Dr. Eli PMHx: HTN, WI, Afib, PVD, CHF, CAD Meds: see bellow PSHx: AICD, hernia repair Allergies: Iodine FHx: denies Social: denies ETOH, ex- smoker, no drugs use. Present on Admission - Present on Admission Any Indicators Present on Admission: No Review of Systems - Review of Systems All systems: reviewed and no additional remarkable complaints except (HPI) Past Patient History - Infectious Disease Hx of Infectious Diseases: None - Past Medical History & Family History Past Medical History?: No - Past Social History Alcohol: None Drugs: Denies - CARDIAC Hx Atrial Fibrillation: Yes Hx Congestive Heart Failure: Yes Hx Hypertension: Yes Hx Pacemaker: Yes - PULMONARY Hx Chronic Obstructive Pulmonary Disease (COPD): Yes Hx Emphysema: Yes - NEUROLOGICAL Hx Neurological Disorder: No - HEENT Hx HEENT Problems: Yes - RENAL Hx Chronic Kidney Disease: No - ENDOCRINE/METABOLIC Hx Endocrine Disorders: No - HEMATOLOGICAL/ONCOLOGICAL Hx Human Immunodeficiency Virus (HIV): No - INTEGUMENTARY Hx Dermatological Problems: No - MUSCULOSKELETAL/RHEUMATOLOGICAL Hx Musculoskeletal Disorders: No Hx Falls: No - GASTROINTESTINAL Hx Gastrointestinal Disorders: No - GENITOURINARY/GYNECOLOGICAL Hx Genitourinary Disorders: Yes - PSYCHIATRIC Hx Substance Use: No - SURGICAL HISTORY Hx Surgeries: Yes Hx Herniorrhaphy: Yes Other/Comment: Hx Pacemaker insertion - ANESTHESIA Hx Anesthesia: Yes Hx Anesthesia Reactions: No Hx Malignant Hyperthermia: No Meds Allergies/Adverse Reactions: Allergies Allergy/AdvReac Type Severity Reaction Status Date / Time Iodinated Contrast- Oral and AdvReac ANAPHYLAXIS Verified 12/29/17 18:00 IV Dye Physical Exam - Constitutional Appears: No Acute Distress - Head Exam Head Exam: NORMAL INSPECTION - Eye Exam Eye Exam: EOMI - Respiratory Exam Respiratory Exam: Decreased Breath Sounds, Rales (at bases). absent: Respiratory Distress - Cardiovascular Exam Cardiovascular Exam: REGULAR RHYTHM. absent: Tachycardia - GI/Abdominal Exam GI & Abdominal Exam: Normal Bowel Sounds, Soft. absent: Distended, Tenderness - Extremities Exam Extremities exam: Positive for: pedal edema (bilateral ). Negative for: calf tenderness - Neurological Exam Neurological exam: Alert, Oriented x3 - Skin Skin Exam: Dry, Warm Results - Vital Signs Recent Vital Signs: Last Vital Signs Temp 98 F 03/06/18 20:43 Pulse 86 03/06/18 23:08 Resp 17 03/06/18 23:08 BP 148/96 H 03/06/18 23:08 Pulse Ox 96 03/06/18 23:08 - Labs Result Diagrams: 03/06/18 21:20 03/06/18 21:20 Labs: Laboratory Results - last 24 hr 03/06/18 03/06/18 03/06/18 20:57 21:20 21:20 WBC 8.0 RBC 3.55 L Hgb 10.4 L Hct 33.0 L MCV 92.9 D MCH 29.4 MCHC 31.7 L RDW 15.6 H Plt Count 228 MPV 8.9 Neut % (Auto) 72.3 Lymph % (Auto) 12.6 L Payette % (Auto) 13.0 H Eos % (Auto) 1.0 Baso % (Auto) 1.1 Neut # (Auto) 5.8 Lymph # (Auto) 1.0 Payette # (Auto) 1.0 H Eos # (Auto) 0.1 Baso # (Auto) 0.1 PT INR APTT Sodium 142 Potassium 4.9 Chloride 107 Carbon Dioxide 28 Anion Gap 12 BUN 42 H Creatinine 1.1 Est GFR ( Amer) > 60 Est GFR (Non-Af Amer) > 60 POC Glucose (mg/dL) 109 Random Glucose 96 Calcium 8.3 L Total Bilirubin 0.3 AST 32 ALT 35 Alkaline Phosphatase 73 Troponin I 0.1260 H* NT-Pro-B Natriuret Pep 92453 H Total Protein 6.5 Albumin 3.0 L Globulin 3.5 Albumin/Globulin Ratio 0.9 L 03/06/18 21:20 WBC RBC Hgb Hct MCV MCH MCHC RDW Plt Count MPV Neut % (Auto) Lymph % (Auto) Payette % (Auto) Eos % (Auto) Baso % (Auto) Neut # (Auto) Lymph # (Auto) Payette # (Auto) Eos # (Auto) Baso # (Auto) PT 12.8 INR 1.1 APTT 29.5 Sodium Potassium Chloride Carbon Dioxide Anion Gap BUN Creatinine Est GFR ( Amer) Est GFR (Non-Af Amer) POC Glucose (mg/dL) Random Glucose Calcium Total Bilirubin AST ALT Alkaline Phosphatase Troponin I NT-Pro-B Natriuret Pep Total Protein Albumin Globulin Albumin/Globulin Ratio Assessment & Plan - Assessment and Plan (Free Text) Assessment: 73 yo male w/ PMHx of [place], Afib, PVD, CHF, CAD, AICD admitted due to CHF exacerbation and elevated troponin, r/o ACS Plan: CHF exacerbation - admit to tele - elevated BNP - CXR shows cardiomegaly and bilateral pulmonary vascular congestion. - Echo 12/17/17: LVSF severely impaired, EF 15-20%, mild MR and TR - s/p lasix IV - continue lasix IV BID - lisinopril increased to 10mg daily - lipitor increased to 20 daily - F/u labs and EKG in AM - CXR in am - C/ rest of home mediation - Cardiology consulted - Patient is in 2 betablockers currently, decided to hold Coreg for now, continue Metoprolol BID Elevated troponin - likely secondary to CHF vs ACS, r/o - on therapeutic lovenox BID - Plavix 300mg once then 75 daily - ASA 81 daily - f/u trending troponin - EKG in am - cardiology consulted Hx of Atrial Fibrillation - rate controlled - c/w home medications - f/u digoxin levels HTN - controlled - c/w home medications CAD - c/w home medications: statin, lisinopril, ASA Prophylactic measures - DVT: lovenox <Reinier Gillette - Last Filed: 03/07/18 02:27> Results - Vital Signs Recent Vital Signs: Last Vital Signs Temp 98 F 03/06/18 20:43 Pulse 74 03/07/18 00:11 Resp 17 03/06/18 23:08 BP 148/96 H 03/06/18 23:08 Pulse Ox 96 03/06/18 23:08 - Labs Result Diagrams: 03/06/18 21:20 03/06/18 21:20 Labs: Laboratory Results - last 24 hr 03/06/18 03/06/18 03/06/18 20:57 21:20 21:20 WBC 8.0 RBC 3.55 L Hgb 10.4 L Hct 33.0 L MCV 92.9 D MCH 29.4 MCHC 31.7 L RDW 15.6 H Plt Count 228 MPV 8.9 Neut % (Auto) 72.3 Lymph % (Auto) 12.6 L Payette % (Auto) 13.0 H Eos % (Auto) 1.0 Baso % (Auto) 1.1 Neut # (Auto) 5.8 Lymph # (Auto) 1.0 Payette # (Auto) 1.0 H Eos # (Auto) 0.1 Baso # (Auto) 0.1 PT INR APTT pCO2 pO2 HCO3 ABG pH ABG Total CO2 ABG O2 Saturation ABG O2 Content ABG Base Excess ABG Hemoglobin ABG Carboxyhemoglobin POC ABG HHb (Measured) ABG Methemoglobin ABG O2 Capacity Greg Test A-a O2 Difference Hgb O2 Saturation FiO2 Sodium 142 Potassium 4.9 Chloride 107 Carbon Dioxide 28 Anion Gap 12 BUN 42 H Creatinine 1.1 Est GFR ( Amer) > 60 Est GFR (Non-Af Amer) > 60 POC Glucose (mg/dL) 109 Random Glucose 96 Calcium 8.3 L Total Bilirubin 0.3 AST 32 ALT 35 Alkaline Phosphatase 73 Troponin I 0.1260 H* NT-Pro-B Natriuret Pep 66720 H Total Protein 6.5 Albumin 3.0 L Globulin 3.5 Albumin/Globulin Ratio 0.9 L 03/06/18 03/07/18 21:20 00:00 WBC RBC Hgb Hct MCV MCH MCHC RDW Plt Count MPV Neut % (Auto) Lymph % (Auto) [place] % (Auto) Eos % (Auto) Baso % (Auto) Neut # (Auto) Lymph # (Auto) Payette # (Auto) Eos # (Auto) Baso # (Auto) PT 12.8 INR 1.1 APTT 29.5 pCO2 63 H pO2 93 HCO3 26.2 ABG pH 7.28 L ABG Total CO2 31.5 H ABG O2 Saturation 98.6 H ABG O2 Content 14.7 L ABG Base Excess 1.7 ABG Hemoglobin 10.9 L ABG Carboxyhemoglobin 2.1 H POC ABG HHb (Measured) 1.4 ABG Methemoglobin 1.3 ABG O2 Capacity 14.9 L Greg Test Yes A-a O2 Difference 541.0 Hgb O2 Saturation 95.2 FiO2 100.0 Sodium Potassium Chloride Carbon Dioxide Anion Gap BUN Creatinine Est GFR ( Amer) Est GFR (Non-Af Amer) POC Glucose (mg/dL) Random Glucose Calcium Total Bilirubin AST ALT Alkaline Phosphatase Troponin I NT-Pro-B Natriuret Pep Total Protein Albumin Globulin Albumin/Globulin Ratio Attending/Attestation - Attestation I have personally seen and examined this patient.: Yes I have fully participated in the care of the patient.: Yes I have reviewed all pertinent clinical information: Yes Notes (Text): 03/07/18 01:39 I saw, examined and discussed this patient with Dr James. I agree with the assessment and plan outlined above which represent my direct input. The patient is a 73 years old male with multiple admissions for Heart failure. He comes with worsening SOB, chest pain and bilateral leg edema. His SpO2 in the ED on Room Air was 89% and he was placed on BIPAP. The Troponin was 0.1260. He is being treated for Acute on Chronic Systolic CHF, EF of 15-20% with Intravenous Lasix 40mg [id number], Lisinopril, Metoprolol with Cardiology consult. The elevated Troponin could be because of the congested heart failure. We are going to treat as NSTEMI with ASA, plavix, and therapeutic Lovenox and the Metoprolol. Continue BIPAP for the Hypoxic Hypercapnic Respiratory Failure. follow ABG, Digoxin levels and telemetry monitoring. Reinier Gillette MD
[2018-03-07] LABS: ABG ALLEN TEST YES; ARTERIAL BLOOD GAS HCO3 26.2 mmol/L (21-28); ARTERIAL BLOOD GAS HEMOGLOBIN 10.9 g/dL (11.7-17.4); ARTERIAL BLOOD GAS O2 CAPACITY 14.9 mL/dL (16-24); ARTERIAL BLOOD GAS O2 CONTENT 14.7 ML/dL (15-23); ARTERIAL BLOOD GAS O2 SAT 98.6 % (95-98); ARTERIAL BLOOD GAS PCO2 63 mm/Hg (35-45); ARTERIAL BLOOD GAS PH 7.28 (7.35-7.45); ARTERIAL BLOOD GAS PO2 93 mm/Hg (80-100); ARTERIAL BLOOD GAS TCO2 31.5 mmol/L (22-28)
[2018-03-07 04:57] LABS: ABG ALLEN TEST YES; ARTERIAL BLOOD GAS HCO3 27.7 mmol/L (21-28); ARTERIAL BLOOD GAS HEMOGLOBIN 10.3 g/dL (11.7-17.4); ARTERIAL BLOOD GAS O2 CAPACITY 14.2 mL/dL (16-24); ARTERIAL BLOOD GAS O2 CONTENT 14.1 ML/dL (15-23); ARTERIAL BLOOD GAS O2 SAT 99.2 % (95-98); ARTERIAL BLOOD GAS PCO2 65 mm/Hg (35-45); ARTERIAL BLOOD GAS PH 7.29 (7.35-7.45); ARTERIAL BLOOD GAS PO2 91 mm/Hg (80-100); ARTERIAL BLOOD GAS TCO2 33.3 mmol/L (22-28)
[2018-03-07 05:32] LABS: BASO # 0.1 K/uL (0.0-0.2); BASO % 1.3 % (0.0-2.0); EOS # 0.1 K/uL (0.0-0.7); EOS % 1.1 % (0.0-4.0); HEMOGLOBIN 10.1 g/dL (12.0-18.0); LYMPH # 0.9 K/uL (1.0-4.3); LYMPH % 13.2 % (20.0-40.0); MEAN CELL VOLUME 92.5 fl (80.0-94.0); MEAN CORPUSCULAR HEMOGLOBIN 30.1 pg (27.0-31.0); MEAN CORPUSCULAR HGB CONC 32.5 g/dL (33.0-37.0); MEAN PLATELET VOLUME 8.9 fl (7.2-11.7); MONO # 0.9 K/uL (0.0-0.8); MONO % 13.6 % (0.0-10.0); NEUT # 4.9 K/uL (1.8-7.0); NEUT % 70.8 % (50.0-75.0); NRBC % 0.1 % (0.0-0.0); RBC 3.36 Mil/uL (4.40-5.90); RED CELL DISTRIBUTION WIDTH 15.6 % (11.5-14.5); WHITE BLOOD COUNT 6.9 K/uL (4.8-10.8)
[2018-03-07 06:02] LABS: ALB/GLOB RATIO 0.8 (1.0-2.1); ALBUMIN 2.7 g/dL (3.5-5.0); ALT/SGPT 28 U/L (21-72); AST/SGOT 25 U/L (17-59); BLOOD UREA NITROGEN 38 mg/dl (9-20); CALCIUM 8.3 mg/dL (8.4-10.2); GFR NON-AFRICAN AMERICAN > 60
[2018-03-07] MEDS: Enoxaparin 80 mg Syringe SC SCH ×2 (09:16→21:36)
[2018-03-07] MEDS: Digoxin 125 mcg (0.125 mg) Tab PO SCH (09:17)
--- NOTE | 2018-03-07 10:40 | CP.PCM.PN ---
<Alvin Payne - Last Filed: 03/07/18 12:50> Subjective - Date & Time of Evaluation Date of Evaluation: 03/07/18 Time of Evaluation: 08:10 - Subjective Subjective: Pt seen and examined at bedside this AM. laying in bed at 45 degree angle. Was on bipap, however, pt reports not being able to tolerate it due to discomfort. Pt currently saturating at 95 % on NC at 3 liters. Denied acute events overnight. Reports mild SOB. 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 Objective - Vital Signs/Intake and Output Vital Signs (last 24 hours): Temp Pulse Resp BP Pulse Ox 97.6 F 92 H 18 145/93 H 95 03/07/18 08:36 03/07/18 09:21 03/07/18 08:36 03/07/18 09:21 03/07/18 08:36 Intake and Output: 03/07/18 03/07/18 06:59 18:59 Output Total 600 Balance -600 - Medications Medications: Current Medications Aspirin (Aspirin Chewable) 81 mg PO DAILY [facility] Last Admin: 03/07/18 09:17 Dose: 81 mg Atorvastatin Calcium (Lipitor) 20 mg PO DAILY [facility] Last Admin: 03/07/18 09:17 Dose: 20 mg Clopidogrel Bisulfate (Plavix) 75 mg PO DAILY [facility] Last Admin: 03/07/18 09:17 Dose: 75 mg Digoxin (Digoxin) 0.125 mg PO DAILY [facility] Last Admin: 03/07/18 09:17 Dose: 0.125 mg Enoxaparin Sodium (Lovenox) 80 mg SC Q12 [facility]; Protocol Last Admin: 03/07/18 09:16 Dose: 80 mg Furosemide (Lasix) 40 mg IV Q12 [facility] Last Admin: 03/07/18 09:16 Dose: 40 mg Lisinopril (Zestril) 10 mg PO DAILY [facility] Last Admin: 03/07/18 09:17 Dose: 10 mg Metoprolol Tartrate (Lopressor) 50 mg PO BID [facility] Last Admin: 03/07/18 09:21 Dose: 50 mg Tamsulosin HCl (Flomax) 0.4 mg PO DAILY [facility] Last Admin: 03/07/18 09:16 Dose: 0.4 mg Zolpidem Tartrate (Ambien) 5 mg PO HS [facility] - Labs Labs: 03/07/18 04:25 03/07/18 04:25 PT 12.8 Seconds (9.8-13.1) 03/06/18 21:20 INR 1.1 03/06/18 21:20 APTT 29.5 Seconds (25.6-37.1) 03/06/18 21:20 - Constitutional Appears: Well, Non-toxic - Eye Exam Eye Exam: EOMI - ENT Exam ENT Exam: Mucous Membranes Moist - Neck Exam Neck Exam: Full ROM - Respiratory Exam Respiratory Exam: Clear to Ausculation Bilateral, Wheezes, NORMAL BREATHING PATTERN - Cardiovascular Exam Cardiovascular Exam: REGULAR RHYTHM, +S1, +S2 - GI/Abdominal Exam GI & Abdominal Exam: Soft, Normal Bowel Sounds. absent: Tenderness - Neurological Exam Neurological Exam: Alert, Awake, CN II-XII Intact - Psychiatric Exam Psychiatric exam: Normal Affect, Normal Mood Assessment and Plan - Assessment and Plan (Free Text) Assessment: 73 yo male w/ PMHx of MO, Afib, PVD, CHF, CAD, AICD admitted due to CHF exacerbation and elevated troponin, r/o ACS Plan: CHF exacerbation - tele - BNP: 36089 - CXR shows cardiomegaly and bilateral pulmonary vascular congestion. - Echo 12/17/17: LVSF severely impaired, EF 15-20%, mild MR and TR - EKG: pending - Cardiology consulted: Dr. Bradford - lasix IV: 40 mg q12 - lisinopril increased to 10mg daily - lipitor increased to 20 daily - C/w rest of home medication - hold Coreg for now, continue Metoprolol BID - F/u labs and EKG Pulmonary edema: - with SOB; saturating 95 % on NC - Pulmonary consulted: Dr. Lujan - lasix IV: 40 mg q12 - Pt placed on BIPAP, however, refused. Started on hi flow: refused. Now on NC 4 L - Pending repeat ABG - f/u CXR Elevated troponin - Repeat troponin negative: .1190 - likely secondary to CHF vs ACS - cardiology: Dr. Bradford - on therapeutic lovenox BID - Plavix 300mg once then 75 daily - ASA 81 daily - f/u trending troponin, EKG, Hx of Atrial Fibrillation - Cardiology: Dr. Bradford - rate controlled - c/w medications - f/u digoxin: 1.4 HTN - controlled - c/w medications CAD - c/w home medications: statin, lisinopril, ASA Prophylactic measures - DVT: lovenox case dw Dr. Kris Payne MD PGY2 <Nelly Ponce - Last Filed: 03/07/18 15:36> Objective - Vital Signs/Intake and Output Vital Signs (last 24 hours): Temp Pulse Resp BP Pulse Ox 97.5 F L 82 20 131/76 93 L 03/07/18 13:04 03/07/18 13:04 03/07/18 13:04 03/07/18 13:04 03/07/18 13:04 Intake and Output: 03/07/18 03/07/18 06:59 18:59 Output Total 600 Balance -600 - Medications Medications: Current Medications Aspirin (Aspirin Chewable) 81 mg PO DAILY [facility] Last Admin: 03/07/18 09:17 Dose: 81 mg Atorvastatin Calcium (Lipitor) 20 mg PO DAILY [facility] Last Admin: 03/07/18 09:17 Dose: 20 mg Clopidogrel Bisulfate (Plavix) 75 mg PO DAILY [facility] Last Admin: 03/07/18 09:17 Dose: 75 mg Digoxin (Digoxin) 0.125 mg PO DAILY [facility] Last Admin: 03/07/18 09:17 Dose: 0.125 mg Enoxaparin Sodium (Lovenox) 80 mg SC Q12 [facility]; Protocol Last Admin: 03/07/18 09:16 Dose: 80 mg Furosemide (Lasix) 40 mg IV Q12 [facility] Last Admin: 03/07/18 09:16 Dose: 40 mg Dobutamine HCl/Dextrose (Dobutamine 250mg/250ml) 250 mg in 250 mls @ 23.297 mls/hr IVPB .[id number] ONE; Protocol Stop: 03/07/18 23:38 Lisinopril (Zestril) 10 mg PO DAILY [facility] Last Admin: 03/07/18 09:17 Dose: 10 mg Metoprolol Tartrate (Lopressor) 50 mg PO BID [facility] Last Admin: 03/07/18 09:21 Dose: 50 mg Tamsulosin HCl (Flomax) 0.4 mg PO DAILY [facility] Last Admin: 03/07/18 09:16 Dose: 0.4 mg Zolpidem Tartrate (Ambien) 5 mg PO HS [facility] - Labs Labs: 03/07/18 04:25 03/07/18 04:25 PT 12.8 Seconds (9.8-13.1) 03/06/18 21:20 INR 1.1 03/06/18 21:20 APTT 29.5 Seconds (25.6-37.1) 03/06/18 21:20 Attending/Attestation - Attestation I have personally seen and examined this patient.: Yes I have fully participated in the care of the patient.: Yes I have reviewed all pertinent clinical information, including history, physical exam and plan: Yes Notes (Text): 1. Acute Respiratory Failure with Hypoxemia and Hypercapnea sec to CHF exacerbation systolic dysfunction EF 20% , s/p AICD 2. Nonobstructive CAD, with Troponin Elevation 3. COPD chronic 4. Atrial Fibrillation, rate controlled - Pt is noncompliant with Bipap and also with High Flow Oxygen ( was taking it off)\ - Cardio consulted - Dr Gomez started Dobutamine drip -cont Digoxin, KRISTIAN, BB and Lasix - cont Lovenox tx dose -Duoneb TID - Pulm consult
--- NOTE | 2018-03-07 11:04 | CARD ---
APPROVED REPORT Date of service: 03/06/2018 EKG Measurement Heart [id number] [id number] <Conclusion> Atrial-sensed ventricular-paced rhythm with premature ventricular complexes Abnormal ECG
--- NOTE | 2018-03-07 12:09 | RAD ---
Date of service: 03/06/2018 HISTORY: Chest pain. COMPARISON: 09/05/2016 FINDINGS: LUNGS: Pulmonary edema. The findings are less severe compared to the prior study. PLEURA: Small right pleural effusion partially loculated. Similar finding identified previously. CARDIOVASCULAR: Cardiomegaly is stable. Atherosclerotic calcifications identified primarily aortic arch. OSSEOUS STRUCTURES: No significant abnormalities. VISUALIZED UPPER ABDOMEN: Normal. OTHER FINDINGS: None. IMPRESSION: Pulmonary edema moderate-severe although improved compared to the prior study.
[2018-03-07] MEDS ORDERED: DOBUTamine 250MG/250ML 250 MG/250 ML SOL IVPB ONE (12:55)
[2018-03-07 13:06] LABS: ABG ALLEN TEST YES; ARTERIAL BLOOD GAS HCO3 29.8 mmol/L (21-28); ARTERIAL BLOOD GAS HEMOGLOBIN 10.9 g/dL (11.7-17.4); ARTERIAL BLOOD GAS O2 CAPACITY 14.8 mL/dL (16-24); ARTERIAL BLOOD GAS O2 CONTENT 13.7 ML/dL (15-23); ARTERIAL BLOOD GAS O2 SAT 92.4 % (95-98); ARTERIAL BLOOD GAS PCO2 57 mm/Hg (35-45); ARTERIAL BLOOD GAS PH 7.37 (7.35-7.45); ARTERIAL BLOOD GAS PO2 57 mm/Hg (80-100); ARTERIAL BLOOD GAS TCO2 34.7 mmol/L (22-28)
--- NOTE | 2018-03-07 13:13 | RAD ---
Date of service: 03/07/2018 PROCEDURE: CHEST RADIOGRAPH, 1 VIEW HISTORY: sob COMPARISON: 03/06/2018. FINDINGS: LUNGS: Stable pulmonary edema PLEURA: Stable right pleural effusion. Fluid tracking along the fissure on the left. CARDIOVASCULAR: No aortic atherosclerotic calcification present. Normal. OSSEOUS STRUCTURES: No significant abnormalities. VISUALIZED UPPER ABDOMEN: Normal. OTHER FINDINGS: None. IMPRESSION: No significant interval change compared to the prior examination(s).
--- NOTE | 2018-03-07 13:16 | CP.PCM.CON ---
History of Present Illness - History of Present Illness History of Present Illness: Pulmonary consult for a 73 y/o M, with SOB. 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 Worsening symptoms: [place], dyspnea at rest. Aggravated factor: Poor historian. No : Fever, chills, n/v/d, abdominal pain, dysuria, cough, CP, numbness, headache, sick contact. CXR showed: Pulmonary edema moderate-severe. EKG: Atrial sensed ventricular paced-rhythm with PVCs Review of Systems - Review of Systems Systems not reviewed;Unavailable: Acuity of Condition Review of Systems: Inability to answer questions Past Patient History - Infectious Disease Hx of Infectious Diseases: None - Past Medical History & Family History Past Medical History?: Yes Pertinent Family History: Unknown - Past Social History Smoking Status: Former Smoker Alcohol: None Drugs: Denies Home Situation {Lives}: With Family - CARDIAC Hx Cardiac Disorders: Yes Hx Atrial Fibrillation: Yes Hx Congestive Heart Failure: Yes Hx Hypertension: Yes Hx Pacemaker: Yes - PULMONARY Hx Respiratory Disorders: Yes Hx Chronic Obstructive Pulmonary Disease (COPD): Yes Hx Emphysema: Yes - NEUROLOGICAL Hx Neurological Disorder: No - HEENT Hx HEENT Problems: Yes Other/Comment: Eye glasses - RENAL Hx Chronic Kidney Disease: No - ENDOCRINE/METABOLIC Hx Endocrine Disorders: No - HEMATOLOGICAL/ONCOLOGICAL Hx Blood Disorders: No Hx Human Immunodeficiency Virus (HIV): No - INTEGUMENTARY Hx Dermatological Problems: No - MUSCULOSKELETAL/RHEUMATOLOGICAL Hx Musculoskeletal Disorders: No Hx Falls: No - GASTROINTESTINAL Hx Gastrointestinal Disorders: No - GENITOURINARY/GYNECOLOGICAL Hx Genitourinary Disorders: Yes Hx Prostate Problems: Yes - PSYCHIATRIC Hx Psychophysiologic Disorder: No Hx Substance Use: No - SURGICAL HISTORY Hx Surgeries: Yes Hx Herniorrhaphy: Yes Other/Comment: Hx Pacemaker insertion - ANESTHESIA Hx Anesthesia: Yes Hx Anesthesia Reactions: No Hx Malignant Hyperthermia: No Has any member of the family had a problem w/ anesthesia?: No Meds Allergies/Adverse Reactions: Allergies Allergy/AdvReac Type Severity Reaction Status Date / Time Iodinated Contrast- Oral and AdvReac ANAPHYLAXIS Verified 12/29/17 18:00 IV Dye - Medications Medications: Current Medications Aspirin (Aspirin Chewable) 81 mg PO DAILY [facility] Last Admin: 03/07/18 09:17 Dose: 81 mg Atorvastatin Calcium (Lipitor) 20 mg PO DAILY [facility] Last Admin: 03/07/18 09:17 Dose: 20 mg Clopidogrel Bisulfate (Plavix) 75 mg PO DAILY [facility] Last Admin: 03/07/18 09:17 Dose: 75 mg Digoxin (Digoxin) 0.125 mg PO DAILY [facility] Last Admin: 03/07/18 09:17 Dose: 0.125 mg Enoxaparin Sodium (Lovenox) 80 mg SC Q12 [facility]; Protocol Last Admin: 03/07/18 09:16 Dose: 80 mg Furosemide (Lasix) 40 mg IV Q12 [facility] Last Admin: 03/07/18 09:16 Dose: 40 mg Dobutamine HCl/Dextrose (Dobutamine 250mg/250ml) 250 mg in 250 mls @ 23.297 mls/hr IVPB .[id number] ONE; Protocol Stop: 03/07/18 23:38 Lisinopril (Zestril) 10 mg PO DAILY [facility] Last Admin: 03/07/18 09:17 Dose: 10 mg Metoprolol Tartrate (Lopressor) 50 mg PO BID [facility] Last Admin: 03/07/18 09:21 Dose: 50 mg Tamsulosin HCl (Flomax) 0.4 mg PO DAILY [facility] Last Admin: 03/07/18 09:16 Dose: 0.4 mg Zolpidem Tartrate (Ambien) 5 mg PO [facility] Physical Exam - Constitutional Appears: Chronically Ill - Head Exam Head Exam: ATRAUMATIC, NORMOCEPHALIC - Eye Exam Eye Exam: PERRL - ENT Exam ENT Exam: Normal Exam - Neck Exam Neck exam: Positive for: Normal Inspection - Respiratory Exam Respiratory Exam: Decreased Breath Sounds (b/l, few crackles at bases) - Cardiovascular Exam Cardiovascular Exam: REGULAR RHYTHM Additional comments: AICD - GI/Abdominal Exam GI & Abdominal Exam: Normal Bowel Sounds, Soft - Extremities Exam Additional comments: 2+ Pitting edema lower extremities - Neurological Exam Neurological exam: Alert, CN II-XII Intact - Skin Skin Exam: Warm Results - Vital Signs Recent Vital Signs: Last Vital Signs Temp 97.5 F L 03/07/18 13:04 Pulse 82 03/07/18 13:04 Resp 20 03/07/18 13:04 BP 131/76 03/07/18 13:04 Pulse Ox 93 L 03/07/18 13:04 [place] Cat - Labs Result Diagrams: 03/07/18 04:25 03/07/18 04:25 Labs: Laboratory Results - last 24 hr 03/06/18 03/06/18 03/06/18 20:57 21:20 21:20 WBC 8.0 RBC 3.55 L Hgb 10.4 L Hct 33.0 L MCV 92.9 D MCH 29.4 MCHC 31.7 L RDW 15.6 H Plt Count 228 MPV 8.9 Neut % (Auto) 72.3 Lymph % (Auto) 12.6 L [place] % (Auto) 13.0 H Eos % (Auto) 1.0 Baso % (Auto) 1.1 Neut # (Auto) 5.8 Lymph # (Auto) 1.0 [place] # (Auto) 1.0 H Eos # (Auto) 0.1 Baso # (Auto) 0.1 PT INR APTT pCO2 pO2 HCO3 ABG pH ABG Total CO2 ABG O2 Saturation ABG O2 Content ABG Base Excess ABG Hemoglobin ABG Carboxyhemoglobin POC ABG HHb (Measured) ABG Methemoglobin ABG O2 Capacity Greg Test A-a O2 Difference Hgb O2 Saturation Vent Mode Mechanical Rate FiO2 Inspiratory BiPAP Expiratory BiPAP Blood Gas Comments Crit Value Read Back Sodium 142 Potassium 4.9 Chloride 107 Carbon Dioxide 28 Anion Gap 12 BUN 42 H Creatinine 1.1 Est GFR ( Amer) > 60 Est GFR (Non-Af Amer) > 60 POC Glucose (mg/dL) 109 Random Glucose 96 Calcium 8.3 L Total Bilirubin 0.3 AST 32 ALT 35 Alkaline Phosphatase 73 Troponin I 0.1260 H* NT-Pro-B Natriuret Pep 85982 H Total Protein 6.5 Albumin 3.0 L Globulin 3.5 Albumin/Globulin Ratio 0.9 L Digoxin 03/06/18 03/07/18 03/07/18 21:20 00:00 04:25 WBC 6.9 RBC 3.36 L Hgb 10.1 L Hct 31.1 L MCV 92.5 MCH 30.1 MCHC 32.5 L RDW 15.6 H Plt Count 227 MPV 8.9 Neut % (Auto) 70.8 Lymph % (Auto) 13.2 L [place] % (Auto) 13.6 H Eos % (Auto) 1.1 Baso % (Auto) 1.3 Neut # (Auto) 4.9 Lymph # (Auto) 0.9 L [place] # (Auto) 0.9 H Eos # (Auto) 0.1 Baso # (Auto) 0.1 PT 12.8 INR 1.1 APTT 29.5 pCO2 63 H pO2 93 HCO3 26.2 ABG pH 7.28 L ABG Total CO2 31.5 H ABG O2 Saturation 98.6 H ABG O2 Content 14.7 L ABG Base Excess 1.7 ABG Hemoglobin 10.9 L ABG Carboxyhemoglobin 2.1 H POC ABG HHb (Measured) 1.4 ABG Methemoglobin 1.3 ABG O2 Capacity 14.9 L Greg Test Yes A-a O2 Difference 541.0 Hgb O2 Saturation 95.2 Vent Mode Mechanical Rate FiO2 100.0 Inspiratory BiPAP Expiratory BiPAP Blood Gas Comments Crit Value Read Back Sodium Potassium Chloride Carbon Dioxide Anion Gap BUN Creatinine Est GFR ( Amer) Est GFR (Non-Af Amer) POC Glucose (mg/dL) Random Glucose Calcium Total Bilirubin AST ALT Alkaline Phosphatase Troponin I NT-Pro-B Natriuret Pep Total Protein Albumin Globulin Albumin/Globulin Ratio Digoxin 03/07/18 03/07/18 03/07/18 04:25 04:25 04:53 WBC RBC Hgb Hct MCV MCH MCHC RDW Plt Count MPV Neut % (Auto) Lymph % (Auto) [place] % (Auto) Eos % (Auto) Baso % (Auto) Neut # (Auto) Lymph # (Auto) [place] # (Auto) Eos # (Auto) Baso # (Auto) PT INR APTT pCO2 65 H pO2 91 HCO3 27.7 ABG pH 7.29 L ABG Total CO2 33.3 H ABG O2 Saturation 99.2 H ABG O2 Content 14.1 L ABG Base Excess 3.5 H ABG Hemoglobin 10.3 L ABG Carboxyhemoglobin 1.9 H POC ABG HHb (Measured) 0.8 ABG Methemoglobin 0.8 ABG O2 Capacity 14.2 L Greg Test Yes A-a O2 Difference 256.0 Hgb O2 Saturation 96.5 Vent Mode Bipap Mechanical Rate 16 FiO2 60.0 Inspiratory BiPAP 16 Expiratory BiPAP 7 Blood Gas Comments Crit Value Read Back Sodium 141 Potassium 4.5 Chloride 106 Carbon Dioxide 29 Anion Gap 11 BUN 38 H Creatinine 1.1 Est GFR ( Amer) > 60 Est GFR (Non-Af Amer) > 60 POC Glucose (mg/dL) Random Glucose 115 H Calcium 8.3 L Total Bilirubin 0.3 AST 25 ALT 28 Alkaline Phosphatase 67 Troponin I 0.1190 NT-Pro-B Natriuret Pep Total Protein 6.0 L Albumin 2.7 L Globulin 3.3 Albumin/Globulin Ratio 0.8 L Digoxin 1.4 03/07/18 03/07/18 11:45 13:03 WBC RBC Hgb Hct MCV MCH MCHC RDW Plt Count MPV Neut % (Auto) Lymph % (Auto) [place] % (Auto) Eos % (Auto) Baso % (Auto) Neut # (Auto) Lymph # (Auto) [place] # (Auto) Eos # (Auto) Baso # (Auto) PT INR APTT pCO2 57 H pO2 57 L HCO3 29.8 H ABG pH 7.37 ABG Total CO2 34.7 H ABG O2 Saturation 92.4 L ABG O2 Content 13.7 L ABG Base Excess 6.4 H ABG Hemoglobin 10.9 L ABG Carboxyhemoglobin 2.1 H POC ABG HHb (Measured) 7.3 H ABG Methemoglobin 1.6 ABG O2 Capacity 14.8 L Greg Test Yes A-a O2 Difference 121.0 Hgb O2 Saturation 89.0 L Vent Mode Mechanical Rate FiO2 35.0 Inspiratory BiPAP Expiratory BiPAP Blood Gas Comments 4l/m nc,rr Crit Value Read Back N Sodium Potassium Chloride Carbon Dioxide Anion Gap BUN Creatinine Est GFR ( Amer) Est GFR (Non-Af Amer) POC Glucose (mg/dL) Random Glucose Calcium Total Bilirubin AST ALT Alkaline Phosphatase Troponin I 0.1020 NT-Pro-B Natriuret Pep Total Protein Albumin Globulin Albumin/Globulin Ratio Digoxin reviewed J.P. - EKG Data EKG comments: reviewed J.P. - Imaging and Cardiology Chest x-ray Status: Report reviewed by me (J.P.) Assessment & Plan (1) Respiratory failure Status: Acute Priority: High (2) CHF exacerbation Status: Acute Priority: High Comment: Acute on chronic systolic (3) COPD (chronic obstructive pulmonary disease) Status: Chronic - Assessment and Plan (Free Text) Plan: Continue High Flow O2, Duoneb, Lasix, Plavix and rest of Tx. - Date & Time Date: 03/07/18 Time: 11:20
[2018-03-07] MEDS ORDERED: Albuterol-Ipratrop 3 mg / 0.5 (3 ml) UD INH STA (15:28)
--- NOTE | 2018-03-07 16:03 | PQF ---
PROVIDER RESPONSE TEXT: Acute Respiratory Failure with Hypoxemia and Hypercapnea sec to CHF exacerbation systolic dysfunction EF 20% , s/p AICD REVIEWER QUERY TEXT: Acuity Specificity Hypoxic Hypercapnic Respiratory Failure is documented in the Medical Record. Please specify the acuit y of this condition with terms such as: -- Acute -- Chronic -- Acute on chronic -- Other (please specify in the medical record) The patient's Clinical Indicators include: Patient with a history of CHF presents with worsening SOB, Chest pain, and bilateral leg edema. SpO2 in the ED on RA was 89%. In acute distress moderate, SOB, inability to answer questions. ABG on 100%: 7.28/63/93/26.2. Changed to Bipap. Query created by: Brenda Covarrubias on 03/07/2018 1:21 PM Electronically signed by: Nelly Ponce MD 03/07/2018 4:00 PM
--- NOTE | 2018-03-07 21:11 | CON ---
DATE: 03/07/2018 REASON FOR CONSULTATION: Exacerbation of congestive heart failure. HISTORY OF PRESENT ILLNESS: The patient is a 73-year-old Italian male, former smoker, former EtOH abuser, has nonischemic cardiomyopathy status post ICD placement, presented because of shortness of breath and cough. The patient denies any retrosternal chest pain. The patient denies any fever or chills. The patient denies any recent discharge of the defibrillator. The patient states that the defibrillator was placed 3 years ago, but does not recall the talent solutions manager that placed it. The patient follows up with Dr. Eli. The patient recently underwent cardiac catheterization at [facility] by Dr. Villalobos on 01/02/2018, about 2 months ago, which revealed nonobstructive coronary disease, nonischemic cardiomyopathy with ejection fraction estimated at 20%. The patient continues to be compliant with his medication. SOCIAL HISTORY: Former smoker, former EtOH abuser. MEDICATIONS: Ambien 5 mg at bedtime, aspirin 81 mg once a day, digoxin 0.125 mg daily, Lasix 40 mg twice a day, Lipitor 20 mg once a day, Lopressor 50 mg once a day, Lovenox 80 mg subcutaneously twice a day, once a day, and Zestril 10 mg once a day. PHYSICAL EXAMINATION GENERAL: The patient is an elderly male, who is mildly tachypneic, does not appear to be in acute distress. VITAL SIGNS: Blood pressure 145/93, heart rate 92, temperature 97.6, and respirations 20. HEENT: Pale conjunctivae. CHEST: Bibasal coarse crepitations. HEART: S1, S2 regular and distant. ABDOMEN: Soft. EXTREMITIES: 2 to 3+ pitting edema. LABORATORY DATA: Today's hemoglobin and hematocrit 10.1 and 31.1. White count and platelet count are within normal limits. SMA-7 is within normal limit except glucose 115 and BUN of 38. Troponin yesterday was 0.126, and today is 0.11. INR is 1.1, PT and PTT are within normal limits. Digoxin level is 1.4. Chest x-ray revealed bilateral lower mid lung zone dense consolidation, adjacent pleural effusion cannot be excluded. EKG revealed atrial sensed ventricular paced rhythm. ASSESSMENT: 1. Exacerbation of congestive heart failure. 2. Nonischemic cardiomyopathy. The patient on the recent echocardiogram did not have evidence of left ventricular apical thrombus. 3. Consider bilateral pneumonia. 4. Consider underlying chronic obstructive lung disease. 5. Borderline troponin elevation. RECOMMENDATIONS: Continue aspirin 81 mg once a day, digoxin 0.125 mg once daily, Lasix 40 mg intravenously twice a day, Lipitor 20 mg once a day, may hold Lopressor now. Continue therapeutic subcutaneous Lovenox 80 mg once a day and Zestril at 10 mg once a day. Start Dobutrex infusion at 5 mcg/kg/min and obtain chest CT scan without contrast. I would recommend initiating antibiotic therapy for presumptive pneumonia and obtain two sets of blood cultures. Jasbir Bradford MD
--- NOTE | 2018-03-08 06:56 | CP.PCM.PN ---
<Lyndon Payneang - Last Filed: 03/08/18 12:52> Subjective - Date & Time of Evaluation Date of Evaluation: 03/08/18 Time of Evaluation: 06:56 - Subjective Subjective: Pt seen and examined at bedside resting comfortably. Denies acute overnight events. Reports improvement in breathing. Currently tolerating hi flow o2 at 15 L. Tolerating po diet and expierincing regular bowel and urinary movements. Objective - Vital Signs/Intake and Output Vital Signs (last 24 hours): Temp Pulse Resp BP Pulse Ox 97.9 F 60 18 160/81 H 89 L 03/08/18 05:07 03/08/18 05:07 03/08/18 05:07 03/08/18 05:07 03/08/18 05:07 Intake and Output: 03/07/18 03/08/18 18:59 06:59 Intake Total 200 Output Total 1100 Balance -900 - Medications Medications: Current Medications Aspirin (Aspirin Chewable) 81 mg PO DAILY [facility] Last Admin: 03/07/18 09:17 Dose: 81 mg Atorvastatin Calcium (Lipitor) 20 mg PO DAILY [facility] Last Admin: 03/07/18 09:17 Dose: 20 mg Carvedilol (Coreg) 6.25 mg PO Q12 [facility] Last Admin: 03/07/18 21:34 Dose: 6.25 mg Clopidogrel Bisulfate (Plavix) 75 mg PO DAILY [facility] Last Admin: 03/07/18 09:17 Dose: 75 mg Digoxin (Digoxin) 0.125 mg PO DAILY [facility] Last Admin: 03/07/18 09:17 Dose: 0.125 mg Enoxaparin Sodium (Lovenox) 80 mg SC Q12 [facility]; Protocol Last Admin: 03/07/18 21:36 Dose: 80 mg Furosemide (Lasix) 40 mg IV Q12 [facility] Last Admin: 03/07/18 21:36 Dose: 40 mg Lisinopril (Zestril) 10 mg PO DAILY [facility] Last Admin: 03/07/18 09:17 Dose: 10 mg Tamsulosin HCl (Flomax) 0.4 mg PO DAILY [facility] Last Admin: 03/07/18 09:16 Dose: 0.4 mg Zolpidem Tartrate (Ambien) 5 mg PO HS [facility] Last Admin: 03/07/18 21:33 Dose: 5 mg - Labs Labs: 03/07/18 04:25 03/07/18 04:25 PT 12.8 Seconds (9.8-13.1) 03/06/18 21:20 INR 1.1 03/06/18 21:20 APTT 29.5 Seconds (25.6-37.1) 03/06/18 21:20 - Constitutional Appears: Well, Non-toxic - Eye Exam Eye Exam: EOMI - ENT Exam ENT Exam: Mucous Membranes Moist - Neck Exam Neck Exam: Full ROM - Respiratory Exam Respiratory Exam: absent: Wheezes, Respiratory Distress - Cardiovascular Exam Cardiovascular Exam: REGULAR RHYTHM, +S1, +S2 - GI/Abdominal Exam GI & Abdominal Exam: Soft, Normal Bowel Sounds. absent: Tenderness - Neurological Exam Neurological Exam: Alert, Awake, CN II-XII Intact, Oriented x3 - Psychiatric Exam Psychiatric exam: Normal Affect, Normal Mood Assessment and Plan - Assessment and Plan (Free Text) Assessment: 73 yo male w/ PMHx of [place], Afib, PVD, CHF, CAD, AICD admitted due to CHF exacerbation and elevated troponin, r/o ACS Plan: CHF exacerbation - tele - BNP: 64915 - CXR shows cardiomegaly and bilateral pulmonary vascular congestion. - Echo 12/17/17: LVSF severely impaired, EF 15-20%, mild MR and TR - EKG - Cardiology consulted: Dr. Bradford: continue asa, Digoxin 0.125 mg qd, Lasix 40 mg IV BID, lipitor 20 mg q d. hold lopressor, Dobutrex infusion at 5 mcg/kg/min - lisinopril 10mg daily - coreg held - F/u labs and EKG COPD - SOB improving - Pulmonary consulted: Dr. Lujan: continue high flow, duoneb, lasix, plavix - lasix IV: 40 mg q12 - Pt placed on BIPAP, however, refused. Started on hi flow: 15L - Pending repeat ABG when on RA - Venous doppler: no evidence of DVT - Will consider home O2 - f/u CT chest Elevated troponin - Repeat troponin negative x 2 - likely secondary to CHF vs ACS - cardiology: Dr. Bradford - on therapeutic lovenox BID - Plavix 300mg once then 75 daily - ASA 81 daily Hx of Atrial Fibrillation - Cardiology: Dr. Bradford - rate controlled - c/w medications - f/u digoxin: 1.4 HTN - controlled - c/w medications CAD - c/w home medications: statin, lisinopril, ASA Prophylactic measures - DVT: lovenox 80 mg qD case dw Dr. Kris Payne MD PGY2 <Nelly Ponce - Last Filed: 03/08/18 16:43> Objective - Vital Signs/Intake and Output Vital Signs (last 24 hours): Temp Pulse Resp BP Pulse Ox 97.6 F 86 18 149/92 H 99 03/08/18 16:22 03/08/18 16:22 03/08/18 16:22 03/08/18 16:22 03/08/18 16:22 Intake and Output: 03/08/18 03/08/18 06:59 18:59 Intake Total 200 Output Total 1100 Balance -900 - Medications Medications: Current Medications Albuterol/Ipratropium (Duoneb 3 Mg/0.5 Mg (3 Ml) Ud) 3 ml INH RQ4 PRN PRN Reason: Shortness of Breath Albuterol/Ipratropium (Duoneb 3 Mg/0.5 Mg (3 Ml) Ud) 3 ml INH RTID [facility] Aspirin (Aspirin Chewable) 81 mg PO DAILY [facility] Last Admin: 03/08/18 08:28 Dose: 81 mg Atorvastatin Calcium (Lipitor) 20 mg PO DAILY [facility] Last Admin: 03/08/18 08:30 Dose: 20 mg Carvedilol (Coreg) 6.25 mg PO Q12 [facility] Last Admin: 03/08/18 08:28 Dose: 6.25 mg Clopidogrel Bisulfate (Plavix) 75 mg PO DAILY [facility] Last Admin: 03/08/18 08:28 Dose: 75 mg Digoxin (Digoxin) 0.125 mg PO DAILY [facility] Last Admin: 03/08/18 08:29 Dose: 0.125 mg Enoxaparin Sodium (Lovenox) 80 mg SC Q12 [facility]; Protocol Last Admin: 03/08/18 08:31 Dose: 80 mg Furosemide (Lasix) 80 mg IV Q12 [facility] Lisinopril (Zestril) 10 mg PO DAILY [facility] Last Admin: 03/08/18 08:31 Dose: 10 mg Tamsulosin HCl (Flomax) 0.4 mg PO DAILY [facility] Last Admin: 03/08/18 08:29 Dose: 0.4 mg Zolpidem Tartrate (Ambien) 5 mg PO HS [facility] Last Admin: 03/07/18 21:33 Dose: 5 mg - Labs Labs: 03/07/18 04:25 03/07/18 04:25 PT 12.8 Seconds (9.8-13.1) 03/06/18 21:20 INR 1.1 03/06/18 21:20 APTT 29.5 Seconds (25.6-37.1) 03/06/18 21:20 Attending/Attestation - Attestation I have personally seen and examined this patient.: Yes I have fully participated in the care of the patient.: Yes I have reviewed all pertinent clinical information, including history, physical exam and plan: Yes Notes (Text): 1. Acute Respiratory Failure with Hypoxemia and Hypercapnea sec to CHF exacerbation systolic dysfunction EF 20% , s/p AICD 2. Nonobstructive CAD, with Troponin Elevation 3. COPD chronic 4. Chronic Atrial Fibrillation, rate controlled - Pt agreed to keep Hi Flow - clinically better although still with SOB, saturation 88% on RA ( [employer] R[employer] Spec consulted for Home Oxygen) - Cardio consulted - Dr Gomez started Dobutamine drip -cont Digoxin, KRISTIAN, BB and Lasix - cont Lovenox tx dose -Duoneb TID - Pulm consult - CT of Chest
[2018-03-08] MEDS: Digoxin 125 mcg (0.125 mg) Tab PO SCH (08:29)
[2018-03-08] MEDS: Enoxaparin 80 mg Syringe SC SCH ×2 (08:31→21:31)
--- NOTE | 2018-03-08 09:37 | US ---
Date of service: 03/07/2018 PROCEDURE: Bilateral lower extremity venous duplex Doppler. HISTORY: R/O DVT COMPARISON: None available. TECHNIQUE: Bilateral common femoral, superficial femoral, popliteal and posterior tibial veins were evaluated. Flow was assessed with color Doppler, compressibility, assessment of phasic flow and augmentation response. FINDINGS: COMMON FEMORAL VEIN: Right CFV: Unremarkable. Left CFV: Unremarkable. SUPERFICIAL FEMORAL VEIN: Right SFV: Unremarkable. Left SFV: Unremarkable. POPLITEAL VEIN: Right Popliteal: Unremarkable. Left Popliteal: Unremarkable. POSTERIOR TIBIAL VEIN: Right PTV: Unremarkable. Left PTV: Unremarkable. OTHER FINDINGS: None. IMPRESSION: No evidence of deep venous thrombosis.
[2018-03-08] MEDS ORDERED: Albuterol-Ipratrop 3 mg / 0.5 (3 ml) UD INH PRN (12:31)
[2018-03-08 14:03] LABS: ABG ALLEN TEST YES; ARTERIAL BLOOD GAS HCO3 33.3 mmol/L (21-28); ARTERIAL BLOOD GAS HEMOGLOBIN 11.7 g/dL (11.7-17.4); ARTERIAL BLOOD GAS O2 CAPACITY 15.7 mL/dL (16-24); ARTERIAL BLOOD GAS O2 CONTENT 14.7 ML/dL (15-23); ARTERIAL BLOOD GAS O2 SAT 93.8 % (95-98); ARTERIAL BLOOD GAS PCO2 47 mm/Hg (35-45); ARTERIAL BLOOD GAS PH 7.49 (7.35-7.45); ARTERIAL BLOOD GAS PO2 51 mm/Hg (80-100); ARTERIAL BLOOD GAS TCO2 37.2 mmol/L (22-28)
--- NOTE | 2018-03-08 16:41 | PQF ---
PROVIDER RESPONSE TEXT: Chronic Atrial Fibrillation REVIEWER QUERY TEXT: Atrial Fibrillation Type Atrial fibrillation is documented in the Medical Record. Please specify the type if known Such as: -- Chronic -- Paroxysmal -- Permanent -- Persistent -- Other, please specify The patient's Clinical Indicators include: Documentation of a history of Atrial Fibrillation. EKG:Atrial-sensed ventricular-paced rhythm with premature ventricular complexes Medication: Digoxin, Coreg, ASA Query created by: Brenda Covarrubias on 03/08/2018 11:42 AM Electronically signed by: Nelly Ponce MD 03/08/2018 4:38 PM
--- NOTE | 2018-03-08 16:43 | CT ---
Date of service: 03/08/2018 PROCEDURE: CT Chest without contrast HISTORY: PNEUMPNIA COMPARISON: None available. TECHNIQUE: Contiguous axial images were obtained through the chest without intravenous contrast enhancement. Sagittal and coronal reconstructions were performed. Radiation dose (DLP): 329.19 mGy-cm. This CT exam was performed using one or more of the following dose reduction techniques: Automated exposure control, adjustment of the mA and/or kV according to patient size, and/or use of iterative reconstruction technique. FINDINGS: LUNGS: Infiltrate versus atelectasis in the anterior segment right upper lobe. No other infiltrate elsewhere. No pulmonary mass. MEDIASTINUM: No aneurysmal dilatation of the ascending thoracic aorta. Marked cardiomegaly. Coronary arterial calcification. AICD present. Dilatation of the main pulmonary artery to a diameter of approximately 4.0 cm. This may correlate with pulmonary arterial hypertension. No lymphadenopathy. There is atherosclerotic calcification of the thoracic aorta. PLEURA: There are small to moderate bilateral pleural effusions. There is fluid seen within both major fissures simulating a pseudotumor on plain chest radiography. There is no pneumothorax. BONES: No fracture. No destructive lesion. UPPER ABDOMEN: Grossly unremarkable. OTHER FINDINGS: None. IMPRESSION: Infiltrate versus atelectasis in anterior segment right upper lobe. Small moderate bilateral pleural effusion with fluid in major fissure bilaterally. Marked cardiomegaly. AICD. Dilatation of main pulmonary artery. Coronary arterial calcification.
--- NOTE | 2018-03-08 18:38 | CP.PCM.PN ---
Subjective - Date & Time of Evaluation Date of Evaluation: 03/08/18 Time of Evaluation: 09:50 - Subjective Subjective: F/U Respiratory failure. no AD, no SOB on High Flow O2 Objective - Vital Signs/Intake and Output Vital Signs (last 24 hours): Temp Pulse Resp BP Pulse Ox 97.6 F 86 18 149/92 H 99 03/08/18 16:22 03/08/18 16:22 03/08/18 16:22 03/08/18 16:22 03/08/18 16:22 Intake and Output: 03/08/18 03/08/18 06:59 18:59 Intake Total 200 Output Total 1100 Balance -900 - Medications Medications: Current Medications Albuterol/Ipratropium (Duoneb 3 Mg/0.5 Mg (3 Ml) Ud) 3 ml INH RQ4 PRN PRN Reason: Shortness of Breath Albuterol/Ipratropium (Duoneb 3 Mg/0.5 Mg (3 Ml) Ud) 3 ml INH RTID [facility] Aspirin (Aspirin Chewable) 81 mg PO DAILY [facility] Last Admin: 03/08/18 08:28 Dose: 81 mg Atorvastatin Calcium (Lipitor) 20 mg PO DAILY [facility] Last Admin: 03/08/18 08:30 Dose: 20 mg Carvedilol (Coreg) 6.25 mg PO Q12 [facility] Last Admin: 03/08/18 08:28 Dose: 6.25 mg Clopidogrel Bisulfate (Plavix) 75 mg PO DAILY [facility] Last Admin: 03/08/18 08:28 Dose: 75 mg Digoxin (Digoxin) 0.125 mg PO DAILY [facility] Last Admin: 03/08/18 08:29 Dose: 0.125 mg Enoxaparin Sodium (Lovenox) 80 mg SC Q12 [facility]; Protocol Last Admin: 03/08/18 08:31 Dose: 80 mg Furosemide (Lasix) 80 mg IV Q12 [facility] Lisinopril (Zestril) 10 mg PO DAILY [facility] Last Admin: 03/08/18 08:31 Dose: 10 mg Tamsulosin HCl (Flomax) 0.4 mg PO DAILY [facility] Last Admin: 03/08/18 08:29 Dose: 0.4 mg Zolpidem Tartrate (Ambien) 5 mg PO HS [facility] Last Admin: 03/07/18 21:33 Dose: 5 mg - Labs Labs: 03/07/18 04:25 12/03/18 04:25 PT 12.8 Seconds (9.8-13.1) 03/06/18 21:20 INR 1.1 03/06/18 21:20 APTT 29.5 Seconds (25.6-37.1) 03/06/18 21:20 - Constitutional Appears: Chronically Ill - Head Exam Head Exam: NORMAL INSPECTION - Eye Exam Eye Exam: PERRL - ENT Exam ENT Exam: Normal Exam - Neck Exam Neck Exam: Normal Inspection - Respiratory Exam Respiratory Exam: Decreased Breath Sounds (b/l, few crackles at bases.) - Cardiovascular Exam Cardiovascular Exam: REGULAR RHYTHM Additional comments: AICD - GI/Abdominal Exam GI & Abdominal Exam: Soft, Normal Bowel Sounds - Extremities Exam Additional comments: 2+ pitting edema lower extremities - Back Exam Back Exam: NORMAL INSPECTION - Neurological Exam Neurological Exam: Alert, CN II-XII Intact, Oriented x3 - Psychiatric Exam Psychiatric exam: Normal Mood - Skin Skin Exam: Warm Assessment and Plan (1) Respiratory failure Status: Acute (2) CHF exacerbation Status: Acute (3) COPD (chronic obstructive pulmonary disease) Status: Chronic - Assessment and Plan (Free Text) Plan: continue High Flow O2, Digoxin, Lasix, Coreg, Plavix, Zestril, DuoNeb and rest of treatment
[2018-03-08] MEDS: Albuterol-Ipratrop 3 mg / 0.5 (3 ml) UD INH SCH (18:59)
--- NOTE | 2018-03-08 20:01 | PN ---
DATE: 03/08/2018 SUBJECTIVE: The patient still experiencing shortness of breath and leg swelling. He denies any chest pain. PHYSICAL EXAMINATION: VITAL SIGNS: Blood pressure 147/78, heart rate 89, temperature 98.7, and respirations 20. HEENT: Normocephalic. CHEST: Bibasal coarse crepitations. HEART: S1, S2 regular. ABDOMEN: Soft. EXTREMITIES: 2+ pitting edema. DIAGNOSTIC DATA: Venous Doppler lower extremity report, no evidence of DVT. Chest CT scan was performed, report still pending. ASSESSMENT: 1. Exacerbation of congestive heart failure. 2. Nonischemic cardiomyopathy, status post implantable cardioverter-defibrillator placement. 3. Consider bilateral pneumonia. 4. Chronic obstructive lung disease. 5. Borderline troponin elevation, and likely represents acute myocardial injury. RECOMMENDATIONS: Continue digoxin 0.125 mg orally daily, Coreg 6.25 mg twice a day, started today. Continue aspirin 81 mg once a day, therapeutic subcutaneous Lovenox at 80 mg every 12 hours, Zestril at 10 mg daily for unclear reason, and Dobutrex was discontinued. I will increase Lasix to 80 mg intravenously twice a day. Jasbir Bradford MD
[2018-03-09] MEDS: Albuterol-Ipratrop 3 mg / 0.5 (3 ml) UD INH SCH ×3 (07:17→19:06)
[2018-03-09] MEDS: Enoxaparin 80 mg Syringe SC SCH ×2 (08:58→21:58)
[2018-03-09] MEDS: Digoxin 125 mcg (0.125 mg) Tab PO SCH (09:19)
--- NOTE | 2018-03-09 09:50 | CP.PCM.PN ---
<Alvin Payne - Last Filed: 03/09/18 13:49> Subjective - Date & Time of Evaluation Date of Evaluation: 03/09/18 Time of Evaluation: 07:30 - Subjective Subjective: Pt seen and examined at bedside. Reports improvement in breathing. Minimal SOB. Currently on [place] O2 at 15 L. Pending CXR for further evaluation with 6 minute walk test and for possible home O2. Objective - Vital Signs/Intake and Output Vital Signs (last 24 hours): Temp Pulse Resp BP Pulse Ox 97.8 F 75 18 147/82 96 03/09/18 08:03 03/09/18 09:01 03/09/18 08:03 03/09/18 09:04 03/09/18 08:03 Intake and Output: 03/09/18 03/09/18 06:59 18:59 Output Total 700 Balance -700 - Medications Medications: Current Medications Albuterol/Ipratropium (Duoneb 3 Mg/0.5 Mg (3 Ml) Ud) 3 ml INH RQ4 PRN PRN Reason: Shortness of Breath Albuterol/Ipratropium (Duoneb 3 Mg/0.5 Mg (3 Ml) Ud) 3 ml INH RTID [facility] Last Admin: 03/09/18 07:17 Dose: 3 ml Aspirin (Aspirin Chewable) 81 mg PO DAILY [facility] Last Admin: 03/09/18 09:02 Dose: 81 mg Atorvastatin Calcium (Lipitor) 20 mg PO DAILY [facility] Last Admin: 03/09/18 09:00 Dose: 20 mg Carvedilol (Coreg) 6.25 mg PO Q12 [facility] Last Admin: 03/09/18 09:01 Dose: 6.25 mg Clopidogrel Bisulfate (Plavix) 75 mg PO DAILY [facility] Last Admin: 03/09/18 09:00 Dose: 75 mg Digoxin (Digoxin) 0.125 mg PO DAILY [facility] Last Admin: 03/09/18 09:19 Dose: 0.125 mg Enoxaparin Sodium (Lovenox) 80 mg SC Q12 [facility]; Protocol Last Admin: 03/09/18 08:58 Dose: 80 mg Furosemide (Lasix) 80 mg IV Q12 [facility] Last Admin: 03/09/18 09:04 Dose: 80 mg Lisinopril (Zestril) 10 mg PO DAILY [facility] Last Admin: 03/09/18 08:59 Dose: 10 mg Tamsulosin HCl (Flomax) 0.4 mg PO DAILY [facility] Last Admin: 03/09/18 09:01 Dose: 0.4 mg Zolpidem Tartrate (Ambien) 5 mg PO [facility] Last Admin: 03/08/18 23:00 Dose: 5 mg - Labs Labs: 03/07/18 04:25 03/07/18 04:25 PT 12.8 Seconds (9.8-13.1) 03/06/18 21:20 INR 1.1 03/06/18 21:20 APTT 29.5 Seconds (25.6-37.1) 03/06/18 21:20 - Constitutional Appears: Well, No Acute Distress - Eye Exam Eye Exam: EOMI - ENT Exam ENT Exam: Mucous Membranes Moist - Respiratory Exam Respiratory Exam: Wheezes (L sided; inspiratory). absent: Respiratory Distress - Cardiovascular Exam Cardiovascular Exam: REGULAR RHYTHM, +S1, +S2 - GI/Abdominal Exam GI & Abdominal Exam: Soft, Normal Bowel Sounds. absent: Tenderness - Neurological Exam Neurological Exam: Alert, Awake, CN II-XII Intact, Oriented x3 - Psychiatric Exam Psychiatric exam: Normal Affect, Normal Mood Assessment and Plan - Assessment and Plan (Free Text) Assessment: 73 yo male w/ PMHx of [place], Afib, PVD, CHF, CAD, AICD admitted due to CHF exacerbation and elevated troponin Plan: CHF exacerbation - tele - BNP: 06855 - CXR shows cardiomegaly and bilateral pulmonary vascular congestion. - Echo 12/17/17: LVSF severely impaired, EF 15-20%, mild MR and TR - EKG - Cardiology consulted: Dr. Bradford: continue asa, Digoxin 0.125 mg qd, Lasix 40 mg IV BID, lipitor 20 mg q d. hold lopressor, Dobutrex infusion at 5 mcg/kg/min - lisinopril 10mg daily - coreg held - F/u labs and EKG COPD - SOB improving - CT chest: Infiltrate versis atelectasis in anterior segment right upper lobe. small moderate bilateral pleural effusion with fluid in major fissure bilaterally. Dilation of pulmonary artery. - Venous doppler: no evidence of DVT - Pulmonary consulted: Dr. Lujan: Recommends when on d/c: Trelegy and 6 minute w alk test. - lasix IV: 40 mg q12 - Pt placed on BIPAP, however, refused. Started on hi flow: 15L - Will consider home O2 - f/u cxr Elevated troponin - Repeat troponin negative x 2 - likely secondary to CHF vs ACS - cardiology: Dr. Bradford - on therapeutic lovenox BID - Plavix 300mg once then 75 daily - ASA 81 daily Hx of Atrial Fibrillation - Cardiology: Dr. Bradford - rate controlled - c/w medications - f/u digoxin: 1.4 HTN - controlled - c/w medications CAD - c/w home medications: statin, lisinopril, ASA Prophylactic measures - DVT: lovenox 80 mg qD Plan dw Dr. Kris Payne MD PGY2 <Nelly Ponce - Last Filed: 03/09/18 18:10> Objective - Vital Signs/Intake and Output Vital Signs (last 24 hours): Temp Pulse Resp BP Pulse Ox 97.9 F 82 20 95/57 L 98 03/09/18 16:30 03/09/18 17:45 03/09/18 16:30 03/09/18 17:45 03/09/18 16:30 Intake and Output: 03/09/18 03/09/18 06:59 18:59 Output Total 700 Balance -700 - Medications Medications: Current Medications Albuterol/Ipratropium (Duoneb 3 Mg/0.5 Mg (3 Ml) Ud) 3 ml INH RQ4 PRN PRN Reason: Shortness of Breath Albuterol/Ipratropium (Duoneb 3 Mg/0.5 Mg (3 Ml) Ud) 3 ml INH RTID [facility] Last Admin: 03/09/18 13:11 Dose: 3 ml Aspirin (Aspirin Chewable) 81 mg PO DAILY [facility] Last Admin: 03/09/18 09:02 Dose: 81 mg Atorvastatin Calcium (Lipitor) 20 mg PO DAILY [facility] Last Admin: 03/09/18 09:00 Dose: 20 mg Carvedilol (Coreg) 6.25 mg PO Q12 [facility] Last Admin: 03/09/18 09:01 Dose: 6.25 mg Clopidogrel Bisulfate (Plavix) 75 mg PO DAILY [facility] Last Admin: 03/09/18 09:00 Dose: 75 mg Digoxin (Digoxin) 0.125 mg PO DAILY [facility] Last Admin: 03/09/18 09:19 Dose: 0.125 mg Enoxaparin Sodium (Lovenox) 80 mg SC Q12 [facility]; Protocol Last Admin: 03/09/18 08:58 Dose: 80 mg Furosemide (Lasix) 80 mg IV Q12 [facility] Last Admin: 03/09/18 09:04 Dose: 80 mg Hydralazine HCl (Apresoline) 10 mg PO QID [facility] Last Admin: 03/09/18 17:45 Dose: Not Given Lisinopril (Zestril) 10 mg PO DAILY [facility] Last Admin: 03/09/18 08:59 Dose: 10 mg Tamsulosin HCl (Flomax) 0.4 mg PO DAILY [facility] Last Admin: 03/09/18 09:01 Dose: 0.4 mg Zolpidem Tartrate (Ambien) 5 mg PO HS [facility] Last Admin: 03/08/18 23:00 Dose: 5 mg - Labs Labs: 03/07/18 04:25 03/07/18 04:25 PT 12.8 Seconds (9.8-13.1) 03/06/18 21:20 INR 1.1 03/06/18 21:20 APTT 29.5 Seconds (25.6-37.1) 03/06/18 21:20 Attending/Attestation - Attestation I have personally seen and examined this patient.: Yes I have fully participated in the care of the patient.: Yes I have reviewed all pertinent clinical information, including history, physical exam and plan: Yes Notes (Text): 1. Acute Respiratory Failure with Hypoxemia and Hypercapnea sec to CHF exacerbation systolic dysfunction EF 20% , s/p AICD 2. Nonobstructive CAD, with Troponin Elevation 3. COPD chronic 4. Chronic Atrial Fibrillation, rate controlled 5. NSTEMI - Pt agreed to keep Hi Flow - clinically better although still with SOB, saturation 89% on RA ( [employer] consulted for Home Oxygen) Pt qualifies for Home Oxygen as he also has Severe CHF, and Pulm HTN - Cardio consulted - Dr Gomez started Dobutamine drip- now off the drip -cont Digoxin, KRISTIAN, BB and Lasix, decrease Hydralazine to 10 mg bid - cont Lovenox tx dose- pt would need to be d/c on DOAC given A Fib -Duoneb TID - Pulm consulted ( Dr Le ), rec to start Trelegy Ellipta ( nonformulary - Rx given to [facility] from [facility]) 03/09/18 18:09
--- NOTE | 2018-03-09 13:25 | CP.PCM.PN ---
Subjective - Date & Time of Evaluation Date of Evaluation: 03/09/18 Time of Evaluation: 12:00 - Subjective Subjective: F/U Respiratory failure no SOB on High Flow O2 Objective - Vital Signs/Intake and Output Vital Signs (last 24 hours): Temp Pulse Resp BP Pulse Ox 97.3 F L 65 18 114/73 93 L 03/09/18 12:19 03/09/18 12:19 03/09/18 12:19 03/09/18 12:19 03/09/18 12:19 Intake and Output: 03/09/18 03/09/18 06:59 18:59 Output Total 700 Balance -700 - Medications Medications: Current Medications Albuterol/Ipratropium (Duoneb 3 Mg/0.5 Mg (3 Ml) Ud) 3 ml INH RQ4 PRN PRN Reason: Shortness of Breath Albuterol/Ipratropium (Duoneb 3 Mg/0.5 Mg (3 Ml) Ud) 3 ml INH RTID [facility] Last Admin: 03/09/18 13:11 Dose: 3 ml Aspirin (Aspirin Chewable) 81 mg PO DAILY [facility] Last Admin: 03/09/18 09:02 Dose: 81 mg Atorvastatin Calcium (Lipitor) 20 mg PO DAILY [facility] Last Admin: 03/09/18 09:00 Dose: 20 mg Carvedilol (Coreg) 6.25 mg PO Q12 [facility] Last Admin: 03/09/18 09:01 Dose: 6.25 mg Clopidogrel Bisulfate (Plavix) 75 mg PO DAILY [facility] Last Admin: 03/09/18 09:00 Dose: 75 mg Digoxin (Digoxin) 0.125 mg PO DAILY [facility] Last Admin: 03/09/18 09:19 Dose: 0.125 mg Enoxaparin Sodium (Lovenox) 80 mg SC Q12 [facility]; Protocol Last Admin: 03/09/18 08:58 Dose: 80 mg Furosemide (Lasix) 80 mg IV Q12 [facility] Last Admin: 03/09/18 09:04 Dose: 80 mg Hydralazine HCl (Apresoline) 10 mg PO QID [facility] Lisinopril (Zestril) 10 mg PO DAILY [facility] Last Admin: 03/09/18 08:59 Dose: 10 mg Tamsulosin HCl (Flomax) 0.4 mg PO DAILY [facility] Last Admin: 03/09/18 09:01 Dose: 0.4 mg Zolpidem Tartrate (Ambien) 5 mg PO HS [facility] Last Admin: 03/08/18 23:00 Dose: 5 mg - Labs Labs: 03/07/18 04:25 03/07/18 04:25 PT 12.8 Seconds (9.8-13.1) 03/06/18 21:20 INR 1.1 03/06/18 21:20 APTT 29.5 Seconds (25.6-37.1) 03/06/18 21:20 - Constitutional Appears: Chronically Ill - Head Exam Head Exam: NORMAL INSPECTION - Eye Exam Eye Exam: PERRL - ENT Exam ENT Exam: Normal Exam - Respiratory Exam Respiratory Exam: Decreased Breath Sounds (b/l, few crackles at bases) - Cardiovascular Exam Cardiovascular Exam: REGULAR RHYTHM Additional comments: AICD - GI/Abdominal Exam GI & Abdominal Exam: Soft, Normal Bowel Sounds - Extremities Exam Additional comments: Pitting edema on lower extremities - Neurological Exam Neurological Exam: Alert, CN II-XII Intact, Oriented x3 - Psychiatric Exam Psychiatric exam: Normal Mood - Skin Skin Exam: Warm Assessment and Plan (1) Respiratory failure Status: Acute (2) CHF exacerbation Status: Acute (3) COPD (chronic obstructive pulmonary disease) Status: Chronic - Assessment and Plan (Free Text) Plan: discussed with Resident , trial of NC 4Lm, 6min POx walk, to evaluate for home O2
--- NOTE | 2018-03-09 15:00 | PQF ---
PROVIDER RESPONSE TEXT: Acute NSTEMI REVIEWER QUERY TEXT: Documentation Clarification Your help is requested in clarifying the following clinical documentation, if you can please further specify in the medical record and discharge summary. Please clarify the possible etiology of the jensd miguel angel troponin elevation if known or unable to determine. PNs: Elevated troponin likely secondary to CHF vs ACS 03/08 Cardiology: Borderline troponin elevation and likely represents acute myocardial injury. The patient's Clinical Indicators include: Patient with a history of GA, A FIB, CHF, CAD, AICD, presents with cough and sob. Troponin 0.126, 0.119, 0.102 Medication: IV Lasix, Dobutrex, Coreg, ASA, Zestril, Query created by: Brenda Covarrubias on 03/09/2018 12:53 PM Electronically signed by: Nelly Ponce MD 03/09/2018 2:57 PM
--- NOTE | 2018-03-09 15:39 | RAD ---
Date of service: 03/09/2018 HISTORY: Shortness of breath COMPARISON: 03/07/2018 TECHNIQUE: Chest PA and lateral FINDINGS: LINES AND TUBES: None. LUNG AND PLEURA: There is interval improved aeration in the lungs with residual airspace disease in the lower lobes. Small right pleural effusion. There also loculated fluid in the right major fissure. No pneumothorax. HEART AND MEDIASTINUM: Persistent mild cardiomegaly. Atherosclerotic aortic arch calcifications are present. Stable position of left-sided permanent pacing device. The hilar and mediastinal contours are within normal limits. SKELETAL STRUCTURES: The bony structures are within normal limits for the patient's age. VISUALIZED UPPER ABDOMEN: Normal. OTHER FINDINGS: None. IMPRESSION: Interval significant improved aeration in the lungs with residual atelectasis/pneumonia/edema in the lower lobes. Small right pleural effusion and loculated fluid in the right major fissure.
--- NOTE | 2018-03-09 21:32 | PN ---
DATE: 03/09/2018 FOLLOWUP SUBJECTIVE: The patient feels slightly better. Shortness of breath and cough has improved. No retrosternal chest pain. PHYSICAL EXAMINATION: VITAL SIGNS: Blood pressure 114/73, heart rate 65, temperature 97.3, and respirations 18. HEENT: Pale conjunctivae. CHEST: Bibasilar rhonchi. HEART: S1 and S2 are regular. EXTREMITIES: 1+ pitting edema. DIAGNOSTIC DATA: Venous Doppler of lower extremities, no evidence of DVT. Chest CT scan without contrast, infiltrate versus atelectasis anterior segment of the right upper lobe, [id number] bilateral pleural effusion with fluid and major fistulas bilaterally. Marked cardiomegaly. AICD. Dilatation of the main pulmonary artery. Coronary artery calcification. Today's chest x-ray revealed improvement of the bilateral lower lobe infiltrates compared to the admitting admission chest x-ray. ASSESSMENT: 1. Nonischemic cardiomyopathy. 2. Status post implantable cardioverter-defibrillator placement. 3. Presumptive pneumonia. 4. Mild anemia. 5. Moderate troponin, unlikely represents acute myocardial injury but also related to the acute systolic heart failure. Point of clarification at yesterday note, it stated as likely represents acute myocardial injury which is a typographical error for unlikely instead of likely. RECOMMENDATIONS: Continue hydralazine 10 mg four times a day, Coreg 6.25 mg twice a day, aspirin 81 mg once a day, digoxin 0.125 mg once a day, Lasix 80 mg intervenous twice a day, Plavix 75 mg daily, Zestril 10 mg once a day. Continue therapeutic subcutaneous Lovenox at 80 mg twice a day. Consider initiate Coumadin if the patient who can comply as an outpatient. Otherwise, follow PT and INR and continue Zestril 10 mg once a day. Jasbir Bradford MD
[2018-03-10] MEDS: Albuterol-Ipratrop 3 mg / 0.5 (3 ml) UD INH SCH ×3 (07:44→19:40)
[2018-03-10] MEDS: Enoxaparin 80 mg Syringe SC SCH ×2 (08:29→20:45)
[2018-03-10] MEDS: Digoxin 125 mcg (0.125 mg) Tab PO SCH (08:29)
[2018-03-10 12:27] LABS: BASO % 0.7 % (0.0-2.0); EOS # 0.1 K/uL (0.0-0.7); HEMOGLOBIN 11.8 g/dL (12.0-18.0); LYMPH # 0.7 K/uL (1.0-4.3); LYMPH % 10.1 % (20.0-40.0); MEAN CELL VOLUME 92.1 fl (80.0-94.0); MEAN CORPUSCULAR HEMOGLOBIN 30.3 pg (27.0-31.0); MEAN CORPUSCULAR HGB CONC 32.9 g/dL (33.0-37.0); MEAN PLATELET VOLUME 8.3 fl (7.2-11.7); MONO # 0.8 K/uL (0.0-0.8); MONO % 11.7 % (0.0-10.0); NEUT % 75.5 % (50.0-75.0); RBC 3.89 Mil/uL (4.40-5.90); RED CELL DISTRIBUTION WIDTH 15.3 % (11.5-14.5); WHITE BLOOD COUNT 6.6 K/uL (4.8-10.8)
[2018-03-10 12:57] LABS: ALB/GLOB RATIO 0.9 (1.0-2.1); ALBUMIN 3.1 g/dL (3.5-5.0); ALT/SGPT 27 U/L (21-72); AST/SGOT 27 U/L (17-59); BLOOD UREA NITROGEN 31 mg/dl (9-20); CALCIUM 8.7 mg/dL (8.4-10.2); GFR NON-AFRICAN AMERICAN > 60
--- NOTE | 2018-03-10 14:16 | PQF ---
PROVIDER RESPONSE TEXT: Troponin not related to Non-stmi. Troponin is related to acute exacerbation of CHF systolic. REVIEWER QUERY TEXT: Conflicting Documentation Clarification Please clarify in your note if you concur or not with the kindergarten teacher that the NSTEMI is ruled out and not ruled in. PN 03/09/[address] Bradford: Moderate troponin, unlikely represents acute myocardial injury b ut also related to the acute systolic heart failure. Point of clarification at yesterday note, it stated as likely represents acute myocardial injury which is a typographical error for unlikely instead o f likely. A previous query was sent regarding the etiology of the elevated troponin. Response by the [facility] t team based on the previous note of 03/[address] Bradford with the typographical error as per his no te. Please clarify in your note if you concur or not with the kindergarten teacher that the NSTEMI is ruled out. A single mention or documentation of multiple diagnoses for the same clinical presentation appears in the record. Please clarify the diagnosis/diagnoses. Please also document if the condition is: -- Confirmed and current -- Confirmed, treated and resolved -- Ruled out -- Other, please specify The patient's Clinical Indicators include: Admitted with SOB and cough. Troponin 0.126, 0.119, 0.102. EKG: Atrial sensed ventricular paced rhythm with PVC Medication: IV Lasix, Dobutrex, Coreg, ASA, Zestril Query created by: Brenda Covarrubias on 03/10/2018 11:28 AM Electronically signed by: Austen Amaro MD 03/10/2018 2:13 PM
--- NOTE | 2018-03-10 14:42 | CP.PCM.PN ---
<Alvin Payne - Last Filed: 03/10/18 14:49> Subjective - Date & Time of Evaluation Date of Evaluation: 03/10/18 Time of Evaluation: 07:00 - Subjective Subjective: Patient seen and examined at bedside. Reports mild improvement with SOB, currently benefitting from HiFlow O2. Denies acute overnight events. Remains afebrile. Saturating at 96%. Tolerating PO diet with normal bowel, urinary movement. Objective - Vital Signs/Intake and Output Vital Signs (last 24 hours): Temp Pulse Resp BP Pulse Ox 97.3 F L 78 18 106/65 96 03/10/18 12:19 03/10/18 12:19 03/10/18 12:19 03/10/18 12:19 03/10/18 12:19 - Medications Medications: Current Medications Albuterol/Ipratropium (Duoneb 3 Mg/0.5 Mg (3 Ml) Ud) 3 ml INH RQ4 PRN PRN Reason: Shortness of Breath Albuterol/Ipratropium (Duoneb 3 Mg/0.5 Mg (3 Ml) Ud) 3 ml INH RTID [facility] Last Admin: 03/10/18 14:29 Dose: 3 ml Aspirin (Aspirin Chewable) 81 mg PO DAILY [facility] Last Admin: 03/10/18 08:27 Dose: 81 mg Atorvastatin Calcium (Lipitor) 20 mg PO DAILY [facility] Last Admin: 03/10/18 08:28 Dose: 20 mg Carvedilol (Coreg) 6.25 mg PO Q12 [facility] Last Admin: 03/10/18 08:27 Dose: 6.25 mg Clopidogrel Bisulfate (Plavix) 75 mg PO DAILY [facility] Last Admin: 03/10/18 08:28 Dose: 75 mg Digoxin (Digoxin) 0.125 mg PO DAILY [facility] Last Admin: 03/10/18 08:29 Dose: 0.125 mg Enoxaparin Sodium (Lovenox) 80 mg SC Q12 [facility]; Protocol Last Admin: 03/10/18 08:29 Dose: 80 mg Furosemide (Lasix) 80 mg IV Q12 [facility] Last Admin: 03/10/18 08:28 Dose: 80 mg Hydralazine HCl (Apresoline) 10 mg PO BID [facility] Last Admin: 03/10/18 08:24 Dose: 10 mg Lisinopril (Zestril) 10 mg PO DAILY [facility] Last Admin: 03/10/18 08:27 Dose: 10 mg Spironolactone (Aldactone) 12.5 mg PO BID [facility] Tamsulosin HCl (Flomax) 0.4 mg PO DAILY [facility] Last Admin: 03/10/18 08:24 Dose: 0.4 mg Zolpidem Tartrate (Ambien) 5 mg PO HS [facility] Last Admin: 03/09/18 22:04 Dose: 5 mg - Labs Labs: 03/10/18 12:14 03/10/18 12:14 PT 12.8 Seconds (9.8-13.1) 03/06/18 21:20 INR 1.1 03/06/18 21:20 APTT 29.5 Seconds (25.6-37.1) 03/06/18 21:20 - Constitutional Appears: Well, Non-toxic - Eye Exam Eye Exam: EOMI - ENT Exam ENT Exam: Mucous Membranes Moist - Neck Exam Neck Exam: Full ROM - Respiratory Exam Respiratory Exam: Decreased Breath Sounds, Wheezes Additional comments: Poor air flow - Cardiovascular Exam Cardiovascular Exam: +S1, +S2 - GI/Abdominal Exam GI & Abdominal Exam: Soft, Normal Bowel Sounds. absent: Tenderness - Neurological Exam Neurological Exam: Alert, Awake, CN II-XII Intact, Oriented x3 - Psychiatric Exam Psychiatric exam: Normal Affect, Normal Mood Assessment and Plan - Assessment and Plan (Free Text) Assessment: 73 yo male w/ PMHx of MT, Afib, PVD, CHF, CAD, AICD, and COPD admitted due to CHF exacerbation and elevated troponin Plan: CHF exacerbation - tele - BNP: [id number] - CXR shows cardiomegaly and bilateral pulmonary vascular congestion. - Echo 12/17/17: LVSF severely impaired, EF 15-20%, mild MR and TR - EKG - Cardiology consulted: Dr. Bradford: continue hydralazine 10 mg QID, Coreg 6.25 mg BID, asa 81 qdaily, digoxin 0.125 mg qd, lasix 80 mg iv bid, plavix 75 mg qd, zestril 10 mg - F/u labs COPD - SOB improving on hi flow oxygen, however, still with poor air flow - CT chest: Infiltrate versis atelectasis in anterior segment right upper lobe. small moderate bilateral pleural effusion with fluid in major fissure bilaterally. Dilation of pulmonary artery. - Venous doppler: no evidence of DVT - Pulmonary consulted: Dr. Lujan: trial of NC 4 L/m, - 6 min walk 03/09/2018 - Trelegy - lasix IV: 80 mg q12 - Start Aldactone 12.5 mg BID - Will order home O2 Elevated troponin - resolved - Repeat troponin negative x 2 - likely secondary to CHF vs ACS - cardiology: Dr. Bradford - on therapeutic lovenox BID - Plavix 300mg once then 75 daily - ASA 81 daily Hx of Atrial Fibrillation - Cardiology: Dr. Bradford - rate controlled - digoxin: 1.4 HTN - controlled - c/w medications CAD - c/w home medications: statin, lisinopril, ASA Prophylactic measures - DVT: lovenox 80 mg BID therapeutic per Dr. Bradford Plan dw Dr. Prem Payne MD PGY2 <Austen Amaro - Last Filed: 03/11/18 13:59> Objective - Vital Signs/Intake and Output Vital Signs (last 24 hours): Temp Pulse Resp BP Pulse Ox 98.1 F 80 18 103/61 95 03/11/18 12:10 03/11/18 12:10 03/11/18 12:10 03/11/18 12:10 03/11/18 12:10 - Medications Medications: Current Medications Albuterol/Ipratropium (Duoneb 3 Mg/0.5 Mg (3 Ml) Ud) 3 ml INH RQ4 PRN PRN Reason: Shortness of Breath Albuterol/Ipratropium (Duoneb 3 Mg/0.5 Mg (3 Ml) Ud) 3 ml INH RTID [facility] Last Admin: 03/11/18 07:29 Dose: 3 ml Aspirin (Aspirin Chewable) 81 mg PO DAILY [facility] Last Admin: 03/11/18 08:59 Dose: 81 mg Atorvastatin Calcium (Lipitor) 20 mg PO DAILY [facility] Last Admin: 03/11/18 08:58 Dose: 20 mg Carvedilol (Coreg) 6.25 mg PO Q12 [facility] Last Admin: 03/11/18 08:59 Dose: 6.25 mg Clopidogrel Bisulfate (Plavix) 75 mg PO DAILY [facility] Last Admin: 03/11/18 08:58 Dose: 75 mg Digoxin (Digoxin) 0.125 mg PO DAILY [facility] Last Admin: 03/11/18 09:01 Dose: 0.125 mg Enoxaparin Sodium (Lovenox) 80 mg SC Q12 [facility]; Protocol Last Admin: 03/11/18 09:00 Dose: 80 mg Furosemide (Lasix) 40 mg IV Q12 [facility] Last Admin: 03/11/18 09:00 Dose: 40 mg Hydralazine HCl (Apresoline) 10 mg PO BID [facility] Last Admin: 03/11/18 08:59 Dose: 10 mg Lisinopril (Zestril) 10 mg PO DAILY [facility] Last Admin: 03/11/18 08:59 Dose: 10 mg Spironolactone (Aldactone) 12.5 mg PO BID [facility] Last Admin: 03/11/18 08:58 Dose: 12.5 mg Tamsulosin HCl (Flomax) 0.4 mg PO DAILY [facility] Last Admin: 03/11/18 08:59 Dose: 0.4 mg Zolpidem Tartrate (Ambien) 5 mg PO HS [facility] Last Admin: 03/10/18 21:02 Dose: 5 mg - Labs Labs: 03/10/18 12:14 03/10/18 12:14 PT 12.8 Seconds (9.8-13.1) 03/06/18 21:20 INR 1.1 03/06/18 21:20 APTT 29.5 Seconds (25.6-37.1) 03/06/18 21:20 Attending/Attestation - Attestation I have personally seen and examined this patient.: Yes I have fully participated in the care of the patient.: Yes I have reviewed all pertinent clinical information, including history, physical exam and plan: Yes Notes (Text): chronic and stable COPD Now stable CHF systolic and patient still requiring oxygen. resolved acute exacerbation of chf for which the patient was admitted.
--- NOTE | 2018-03-10 15:39 | CP.PCM.PN ---
Subjective - Date & Time of Evaluation Date of Evaluation: 03/10/18 Time of Evaluation: 11:20 - Subjective Subjective: F/U Respiratory failure no AD,no SOB, on NC 4Lm Objective - Vital Signs/Intake and Output Vital Signs (last 24 hours): Temp Pulse Resp BP Pulse Ox 97.3 F L 78 18 106/65 96 03/10/18 12:19 03/10/18 12:19 03/10/18 12:19 03/10/18 12:19 03/10/18 12:19 - Medications Medications: Current Medications Albuterol/Ipratropium (Duoneb 3 Mg/0.5 Mg (3 Ml) Ud) 3 ml INH RQ4 PRN PRN Reason: Shortness of Breath Albuterol/Ipratropium (Duoneb 3 Mg/0.5 Mg (3 Ml) Ud) 3 ml INH RTID [facility] Last Admin: 03/10/18 14:29 Dose: 3 ml Aspirin (Aspirin Chewable) 81 mg PO DAILY [facility] Last Admin: 03/10/18 08:27 Dose: 81 mg Atorvastatin Calcium (Lipitor) 20 mg PO DAILY [facility] Last Admin: 03/10/18 08:28 Dose: 20 mg Carvedilol (Coreg) 6.25 mg PO Q12 [facility] Last Admin: 03/10/18 08:27 Dose: 6.25 mg Clopidogrel Bisulfate (Plavix) 75 mg PO DAILY [facility] Last Admin: 03/10/18 08:28 Dose: 75 mg Digoxin (Digoxin) 0.125 mg PO DAILY [facility] Last Admin: 03/10/18 08:29 Dose: 0.125 mg Enoxaparin Sodium (Lovenox) 80 mg SC Q12 [facility]; Protocol Last Admin: 03/10/18 08:29 Dose: 80 mg Furosemide (Lasix) 80 mg IV Q12 [facility] Last Admin: 03/10/18 08:28 Dose: 80 mg Hydralazine HCl (Apresoline) 10 mg PO BID [facility] Last Admin: 03/10/18 08:24 Dose: 10 mg Lisinopril (Zestril) 10 mg PO DAILY [facility] Last Admin: 03/10/18 08:27 Dose: 10 mg Spironolactone (Aldactone) 12.5 mg PO BID [facility] Tamsulosin HCl (Flomax) 0.4 mg PO DAILY [facility] Last Admin: 03/10/18 08:24 Dose: 0.4 mg Zolpidem Tartrate (Ambien) 5 mg PO HS [facility] Last Admin: 03/09/18 22:04 Dose: 5 mg - Labs Labs: 03/10/18 12:14 03/10/18 12:14 PT 12.8 Seconds (9.8-13.1) 03/06/18 21:20 INR 1.1 03/06/18 21:20 APTT 29.5 Seconds (25.6-37.1) 03/06/18 21:20 - Constitutional Appears: Chronically Ill - Head Exam Head Exam: NORMAL INSPECTION - Eye Exam Eye Exam: PERRL - ENT Exam ENT Exam: Normal Exam - Neck Exam Neck Exam: Normal Inspection - Respiratory Exam Respiratory Exam: Decreased Breath Sounds (at bases, few crackles at bases) - Cardiovascular Exam Cardiovascular Exam: REGULAR RHYTHM Additional comments: AICD - GI/Abdominal Exam GI & Abdominal Exam: Soft, Normal Bowel Sounds - Back Exam Additional comments: Pitting edema on lower extremities - Neurological Exam Neurological Exam: Alert, CN II-XII Intact, Oriented x3 - Psychiatric Exam Psychiatric exam: Normal Mood - Skin Skin Exam: Warm Assessment and Plan (1) Respiratory failure Status: Acute (2) CHF exacerbation Status: Acute (3) COPD (chronic obstructive pulmonary disease) Status: Chronic - Assessment and Plan (Free Text) Plan: doing well on NC 4Lm, ABG RA and 6min walk O2 desaturation, Patient to have home O2
--- NOTE | 2018-03-10 21:05 | PN ---
DATE: 03/10/2018 SUBJECTIVE: The patient's shortness of breath is slightly improved as well as leg swelling. PHYSICAL EXAMINATION: VITAL SIGNS: Blood pressure 160/65, heart rate , temperature , respirations 18. HEENT: Normocephalic. CHEST: Bibasilar rhonchi. HEART: S1 and S2, regular. EXTREMITIES: 1+ pitting edema. LABORATORY DATA: Hemoglobin and hematocrit are 11.8 and 35.8. White count and platelet count are within normal limits. Today's SMA-7: Sodium 139, potassium 4.4, chloride 93, CO2 of 41, glucose 127, BUN 31, and creatinine 0.9. Chest x-ray performed yesterday, official report, interval significant improved aeration in the lungs with residual atelectasis/pneumonia/edema in the lower lobes. Small right pleural effusion and loculated fluid in the right major fissure. ASSESSMENT: 1. Nonischemic cardiomyopathy. 2. Status post implantable-cardioverter defibrillator placement. 3. Pneumonia. 4. Mild anemia. 5. Borderline troponin elevation. 6. Mild metabolic alkalosis. RECOMMENDATIONS: Continue hydralazine 10 mg twice a day, aspirin 81 mg once a day, Coreg 6.25 mg twice a day, digoxin 0.125 mg daily. Reduce Lasix to 40 mg intravenously twice a day. Continue subcutaneous Lovenox 80 mg twice a day and Zestril 10 mg once a day. Jasbir Bradford MD
[2018-03-11] MEDS: Albuterol-Ipratrop 3 mg / 0.5 (3 ml) UD INH SCH ×3 (07:29→19:30)
--- NOTE | 2018-03-11 08:31 | CP.PCM.PN ---
Subjective - Date & Time of Evaluation Date of Evaluation: 03/11/18 Time of Evaluation: 07:00 Objective - Vital Signs/Intake and Output Vital Signs (last 24 hours): Temp Pulse Resp BP Pulse Ox 98.3 F 90 18 125/77 96 03/11/18 08:02 03/11/18 08:02 03/11/18 08:02 03/11/18 08:02 03/11/18 08:02 - Medications Medications: Current Medications Albuterol/Ipratropium (Duoneb 3 Mg/0.5 Mg (3 Ml) Ud) 3 ml INH RQ4 PRN PRN Reason: Shortness of Breath Albuterol/Ipratropium (Duoneb 3 Mg/0.5 Mg (3 Ml) Ud) 3 ml INH RTID [facility] Last Admin: 03/11/18 07:29 Dose: 3 ml Aspirin (Aspirin Chewable) 81 mg PO DAILY [facility] Last Admin: 03/10/18 08:27 Dose: 81 mg Atorvastatin Calcium (Lipitor) 20 mg PO DAILY [facility] Last Admin: 03/10/18 08:28 Dose: 20 mg Carvedilol (Coreg) 6.25 mg PO Q12 [facility] Last Admin: 03/10/18 20:43 Dose: 6.25 mg Clopidogrel Bisulfate (Plavix) 75 mg PO DAILY [facility] Last Admin: 03/10/18 08:28 Dose: 75 mg Digoxin (Digoxin) 0.125 mg PO DAILY [facility] Last Admin: 03/10/18 08:29 Dose: 0.125 mg Enoxaparin Sodium (Lovenox) 80 mg SC Q12 [facility]; Protocol Last Admin: 03/10/18 20:45 Dose: 80 mg Furosemide (Lasix) 40 mg IV Q12 [facility] Last Admin: 03/10/18 20:44 Dose: 40 mg Hydralazine HCl (Apresoline) 10 mg PO BID [facility] Last Admin: 03/10/18 16:55 Dose: 10 mg Lisinopril (Zestril) 10 mg PO DAILY [facility] Last Admin: 03/10/18 08:27 Dose: 10 mg Spironolactone (Aldactone) 12.5 mg PO BID [facility] Last Admin: 03/10/18 17:12 Dose: 12.5 mg Tamsulosin HCl (Flomax) 0.4 mg PO DAILY [facility] Last Admin: 03/10/18 08:24 Dose: 0.4 mg Zolpidem Tartrate (Ambien) 5 mg PO HS [facility] Last Admin: 03/10/18 21:02 Dose: 5 mg - Labs Labs: 03/10/18 12:14 03/10/18 12:14 PT 12.8 Seconds (9.8-13.1) 03/06/18 21:20 INR 1.1 03/06/18 21:20 APTT 29.5 Seconds (25.6-37.1) 03/06/18 21:20
[2018-03-11] MEDS: Enoxaparin 80 mg Syringe SC SCH (09:00)
[2018-03-11] MEDS: Digoxin 125 mcg (0.125 mg) Tab PO SCH (09:01)
[2018-03-11 09:02] VITALS: PULSE 90
[2018-03-11 10:09] LABS: ABG ALLEN TEST YES; ARTERIAL BLOOD GAS HCO3 38.8 mmol/L (21-28); ARTERIAL BLOOD GAS HEMOGLOBIN 12.2 g/dL (11.7-17.4); ARTERIAL BLOOD GAS O2 CAPACITY 16.7 mL/dL (16-24); ARTERIAL BLOOD GAS O2 CONTENT 16.4 ML/dL (15-23); ARTERIAL BLOOD GAS O2 SAT 98.4 % (95-98); ARTERIAL BLOOD GAS PCO2 46 mm/Hg (35-45); ARTERIAL BLOOD GAS PH 7.57 (7.35-7.45); ARTERIAL BLOOD GAS PO2 78 mm/Hg (80-100); ARTERIAL BLOOD GAS TCO2 43.5 mmol/L (22-28)
[2018-03-11 12:10] VITALS: O2SAT 95
--- NOTE | 2018-03-11 15:39 | CP.PCM.DIS ---
Provider - Provider Date of Admission: 03/06/18 22:15 Attending physician: Reinier Gillette Consults: 03/06/18 23:24 Cardiology Consult Stat Comment: Consulting Provider: Jasbir Bradford Consulting Physician: Jasbir Bradford Reason for Consult: CHF, ACS 03/07/18 10:40 Pulmonology Consult Routine Comment: Consulting Provider: Sabino Lujan Consulting Physician: Sabino Lujan Reason for Consult: SOB, on hi flow 03/10/18 11:11 Palliative Care Consult Routine Comment: Consulting Provider: Alexandra Aguirre Physician Instructions: Reason For Exam: chf copd Time Spent in preparation of Discharge (in minutes): 30 Hospital Course - Lab Results Lab Results: Micro Results 03/07/18 14:38 Blood-Venous Blood Culture - Preliminary NO GROWTH AFTER 4 DAYS Most Recent Lab Values WBC 6.6 K/uL (4.8-10.8) 03/10/18 12:14 RBC 3.89 Mil/uL (4.40-5.90) L 03/10/18 12:14 Hgb 11.8 g/dL (12.0-18.0) L 03/10/18 12:14 Hct 35.8 % (35.0-51.0) 03/10/18 12:14 MCV 92.1 fl (80.0-94.0) 03/10/18 12:14 MCH 30.3 pg (27.0-31.0) 03/10/18 12:14 MCHC 32.9 g/dL (33.0-37.0) L 03/10/18 12:14 RDW 15.3 % (11.5-14.5) H 03/10/18 12:14 Plt Count 257 K/uL (130-400) 03/10/18 12:14 MPV 8.3 fl (7.2-11.7) 03/10/18 12:14 Neut % (Auto) 75.5 % (50.0-75.0) H 03/10/18 12:14 Lymph % (Auto) 10.1 % (20.0-40.0) L 03/10/18 12:14 [place] % (Auto) 11.7 % (0.0-10.0) H 03/10/18 12:14 Eos % (Auto) 2.0 % (0.0-4.0) 03/10/18 12:14 Baso % (Auto) 0.7 % (0.0-2.0) 03/10/18 12:14 Neut # (Auto) 5.0 K/uL (1.8-7.0) 03/10/18 12:14 Lymph # (Auto) 0.7 K/uL (1.0-4.3) L 03/10/18 12:14 [place] # (Auto) 0.8 K/uL (0.0-0.8) 03/10/18 12:14 Eos # (Auto) 0.1 K/uL (0.0-0.7) 03/10/18 12:14 Baso # (Auto) 0.0 K/uL (0.0-0.2) 03/10/18 12:14 PT 12.8 Seconds (9.8-13.1) 03/06/18 21:20 INR 1.1 03/06/18 21:20 APTT 29.5 Seconds (25.6-37.1) 03/06/18 21:20 pCO2 46 mm/Hg (35-45) H 03/11/18 10:06 pO2 78 mm/Hg (80-100) L 03/11/18 10:06 HCO3 38.8 mmol/L (21-28) H 03/11/18 10:06 ABG pH 7.57 (7.35-7.45) H 03/11/18 10:06 ABG Total CO2 43.5 mmol/L (22-28) H 03/11/18 10:06 ABG O2 Saturation 98.4 % (95-98) H 03/11/18 10:06 ABG O2 Content 16.4 ML/dL (15-23) 03/11/18 10:06 ABG Base Excess 17.9 mmol/L (-2.0-3.0) H 03/11/18 10:06 ABG Hemoglobin 12.2 g/dL (11.7-17.4) 03/11/18 10:06 ABG Carboxyhemoglobin 2.1 % (0.5-1.5) H 03/11/18 10:06 POC ABG HHb (Measured) 1.5 % (0.0-5.0) 03/11/18 10:06 ABG Methemoglobin 1.3 % (0.0-3.0) 03/11/18 10:06 ABG O2 Capacity 16.7 mL/dL (16-24) 03/11/18 10:06 Greg Test Yes 03/11/18 10:06 A-a O2 Difference 14.0 mm/Hg 03/11/18 10:06 Hgb O2 Saturation 95.2 % (95.0-98.0) 03/11/18 10:06 Vent Mode Bipap 03/07/18 04:53 Mechanical Rate 16 03/07/18 04:53 FiO2 21.0 % 03/11/18 10:06 Inspiratory BiPAP 16 03/07/18 04:53 Expiratory BiPAP 7 03/07/18 04:53 Blood Gas Comments Room air 03/11/18 10:06 Crit Value Read Back N 03/11/18 10:06 Sodium 139 mmol/l (132-148) 03/10/18 12:14 Potassium 4.4 MMOL/L (3.6-5.0) 03/10/18 12:14 Chloride 93 mmol/L (98-107) L 03/10/18 12:14 Carbon Dioxide 41 mmol/L (22-30) H* D 03/10/18 12:14 Anion Gap 9 (10-20) L 03/10/18 12:14 BUN 31 mg/dl (9-20) H 03/10/18 12:14 Creatinine 0.9 mg/dl (0.8-1.5) 03/10/18 12:14 Est GFR ( Amer) > 60 03/10/18 12:14 Est GFR (Non-Af Amer) > 60 03/10/18 12:14 POC Glucose (mg/dL) 109 mg/dL (65-110) 03/06/18 20:57 Random Glucose 127 mg/dL (75-110) H 03/10/18 12:14 Calcium 8.7 mg/dL (8.4-10.2) 03/10/18 12:14 Phosphorus 3.8 mg/dl (2.5-4.5) 03/10/18 12:14 Magnesium 2.1 MG/DL (1.6-2.3) 03/10/18 12:14 Total Bilirubin 0.4 mg/dl (0.2-1.3) 03/10/18 12:14 AST 27 U/L (17-59) 03/10/18 12:14 ALT 27 U/L (21-72) 03/10/18 12:14 Alkaline Phosphatase 66 U/L (38-126) 03/10/18 12:14 Troponin I 0.1020 ng/mL (0.00-0.120) 03/07/18 11:45 NT-Pro-B Natriuret Pep 10686 pg/ml (0-900) H 03/06/18 21:20 Total Protein 6.6 G/DL (6.3-8.2) 03/10/18 12:14 Albumin 3.1 g/dL (3.5-5.0) L 03/10/18 12:14 Globulin 3.5 gm/dL (2.2-3.9) 03/10/18 12:14 Albumin/Globulin Ratio 0.9 (1.0-2.1) L 03/10/18 12:14 Digoxin 1.4 ng/mL (0.8-2.0) 03/07/18 04:25 - Hospital Course Hospital Course: 73 yo male w/ PMHx of IA, Afib, PVD, CHF, CAD, AICD, and COPD admitted due to CHF exacerbation and elevated troponin. - CXR shows cardiomegaly and bilateral pulmonary vascular congestion. - Echo 12/17/17: LVSF severely impaired, EF 15-20%, mild MR and TR - CT chest: Infiltrate versis atelectasis in anterior segment right upper lobe. small moderate bilateral pleural effusion with fluid in major fissure bilaterally. Dilation of pulmonary artery. - Venous doppler: no evidence of DVT CHF exacerbation: BNP: 80250. Cardiology consulted: Dr. Bradford: hydralazine 10 mg QID, Coreg 6.25 mg BID, asa 81 qdaily, digoxin 0.125 mg qd, lasix 80 tapered down to 40 mg iv bid, plavix 75 mg qd, zestril 10 mg COPD exacerbation: Pt started on BIPAP however, refused. Transitioned to hiflow and then to nasal cannula at 2 L; Pulm: Dr. Lujan; Pt failed 6 minute walk test. Chest pain: repeat Troponin negative x2; likely 2/2 CHF. Hx of afib. Pt discharged home with home oxygen. Duoneb TID PRN. Trelegy. Lasix PO Pt instructed to measure daily weight. if increasw 2 lbs, to take extra lasix PO case dw dr. Prem Payne MD PGY2 Discharge Exam - Head Exam Head Exam: NORMAL INSPECTION - Eye Exam Eye Exam: EOMI - Respiratory Exam Respiratory Exam: Clear to PA & Lateral, NORMAL BREATHING PATTERN. absent: Wheezes - Cardiovascular Exam Cardiovascular Exam: REGULAR RHYTHM, +S1, +S2 - GI/Abdominal Exam GI & Abdominal Exam: Normal Bowel Sounds. absent: Tenderness - Neurological Exam Neurological exam: Alert, CN II-XII Intact, Oriented x3 - Psychiatric Exam Psychiatric exam: Normal Affect, Normal Mood Discharge Plan - Discharge Medications Prescriptions: Albuterol/Ipratropium [Duoneb 3 mg/0.5 mg (3 ml) UD] 3 ml INH RTID 30 Days #1 neb Aspirin [Aspirin Chewable] 81 mg PO DAILY #30 chew Atorvastatin [Lipitor] 20 mg PO DAILY #30 tab Carvedilol [Coreg] 6.25 mg PO Q12 #60 tab Clopidogrel [Plavix] 75 mg PO DAILY #30 tab Digoxin 1 tab PO DAILY #30 tab Fluticasone/Umeclidin/Vilanter [Trelegy Ellipta 100-62.5-25] 1 each IH DAILY 30 Days #1 blst.w.dev Furosemide [Lasix] 40 mg PO DAILY #30 tab hydrALAZINE [Apresoline] 10 mg PO QID #30 tab hydrALAZINE [Apresoline] 10 mg PO BID 30 Days #60 tab Lisinopril [Zestril] 10 mg PO DAILY #30 tab Spironolactone [Aldactone] 12.5 mg PO BID #60 tab Tamsulosin [Flomax] 0.4 mg PO DAILY #30 cap Zolpidem [Ambien] 5 mg PO HS #30 tab - Follow Up Plan Condition: GUARDED Disposition: HOME/ ROUTINE Instructions: Heart Failure, Adult (DC), Exacerbation of COPD (DC), Heart Failure (DC), Heart Failure (GEN), Pacemaker (DC), Pacemaker (GEN), Pulmonary Edema (DC), Pulmonary Edema (GEN), Ascites (DC), Ascites (GEN) Additional Instructions: follow up appt.with wednesday03/14/18 1:00PM Home O2 prescription provided to nursing Referrals: Jasbir Bradford MD [Staff Provider] - Krish Eli Jr., MD [Medical Doctor] - Sabino Lujan MD [Staff Provider] -
[2018-03-11 16:15] VITALS: BP 112/70; PULSE 78; RESP 20; TEMP 97.3
--- NOTE | 2018-03-11 20:37 | PN ---
DATE: 03/11/2018 SUBJECTIVE: The patient's shortness of breath as well as leg swelling have improved. PHYSICAL EXAMINATION: VITAL SIGNS: Blood pressure 112/70, heart rate 78, temperature 97.3, respirations 20. HEENT: Normocephalic. CHEST: Minimal basal rhonchi. HEART: S1 and S2 regular. EXTREMITIES: Trace leg edema. ASSESSMENT: 1. Exacerbation of congestive heart failure. Patient has acute systolic heart failure. 2. Status post ICD placement. 3. Borderline troponin elevation. 4. Mild metabolic alkalosis. 5. Improved pneumonia. RECOMMENDATIONS: Continue Aldactone 12.5 mg twice a day, hydralazine 10 mg twice a day, aspirin 81 mg once a day, Coreg 6.25 mg twice a day, digoxin 0.125 mg daily, Lasix will be reduced to 40 mg intravenously once a day. Continue subcutaneous Lovenox at 80 mg twice a day, Plavix 75 mg once a day, Zestril 10 mg once a day. 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 Villalobos. He will follow with him as an outpatient. Jasbir Bradford MD
--- NOTE | 2018-03-17 11:30 | PQF ---
PROVIDER RESPONSE TEXT: Acute NSTEMI REVIEWER QUERY TEXT: Myocardial Infarction Type An [place] is documented. Please specify the type of [place]. The patient's Clinical Indicators include: ELEVATED TROPONIN COULD BE DUE TO CHF"; PER YOUR QUERY RESPONSE ON 03/09 .STATES " ACUTE NSTEMI"; PER DR. FRANCOIS QUERY RESPONSE OF 03/10 STATES " TROPONIN NOT RELATED to NON-STMI; IS RELATED TO ACUTE EXACERBATION of SYSTOLIC CHF". DUE TO CONFLICTING DOCUMENTATION PLEASE CLARIF Y IF ACUTE NSTEMI was RULED IN or OUT. Query created by: Susannah Bah on 03/15/2018 9:18 AM Electronically signed by: Nelly Ponce MD 03/17/2018 11:28 AM
== END 2018-03-11 20:30 | disposition home health service (06) | DRG 280 ==
LOC: H.ER 20:40 → H.ERHOLD 22:15 → H.TEL 23:30
PROVIDERS: ADMIT Internal Medicine; ATTEND Internal Medicine
PROC: 5A09357 Assistance with Respiratory Ventilation, Less than 24 Consecutive Hours, Continuous Positive Airway Pressure (ICD-10-PCS; principal; 2018-03-06)
DX: I21.4 Non-ST elevation (NSTEMI) myocardial infarction (principal); J96.02 Acute respiratory failure with hypercapnia; J96.01 Acute respiratory failure with hypoxia; J18.9 Pneumonia, unspecified organism; I50.23 Acute on chronic systolic (congestive) heart failure; J44.1 Chronic obstructive pulmonary disease with (acute) exacerbation; E87.3 Alkalosis; I42.8 Other cardiomyopathies; I11.0 Hypertensive heart disease with heart failure; I24.9 Acute ischemic heart disease, unspecified; I48.2 Chronic atrial fibrillation; I27.20 Pulmonary hypertension, unspecified; I25.10 Atherosclerotic heart disease of native coronary artery without angina pectoris; D64.9 Anemia, unspecified; I73.9 Peripheral vascular disease, unspecified; I25.2 Old myocardial infarction; Z91.041 Radiographic dye allergy status; Z91.19 Patient's noncompliance with other medical treatment and regimen; Z95.810 Presence of automatic (implantable) cardiac defibrillator; Z79.82 Long term (current) use of aspirin; Z87.891 Personal history of nicotine dependence